=== PATIENT | male | born 1945 | race Caucasian/White ===

== ENCOUNTER 2018-02-05 19:40 | Emergency (ER) | payer OTHER, SELFPAY ==
[2018-02-05 19:41] VITALS: BP 162/71; PULSE 73; RESP 20; TEMP 36.6; O2SAT 97; BMI 29.5
[2018-02-05] MEDS: Oxymetazoline 0.05% 1 SPRAY SPRAY.BTL 2 SPRAY NASAL (21:22)
[2018-02-05] MEDS: Tetracaine/Benzocaine/Butamben 1 APPLIC TOPICAL (21:23)
--- NOTE | 2018-02-05 22:16 | ED.DCSUM_ITS ---
- ER Visit Summary Date of Service: 02/05/18 Chief Complaint: Nosebleed History of Present Illness: The patient is a 72 M with nosebleed for the past 2 hours. Patient is currently on Xarelto and aspirin. He states that the nosebleed started after blowing his nose and is not been able to get it to stop. Physical Examination: Vital signs significant for blood pressure 162/71, otherwise unremarkable. Patient sitting upright in bed. He has a nasal clamp on but is continuing to bleed in spite of this. He states blood was coming from both right and left sides. Test Results: [] Emergency Department Course and Treatment: Nasal clamp is removed. Afrin and Cetacaine are applied to each nare. I attempted to have patient blow his nose but he was unable. Blood is noted to both sides. He believes the majority the bleeding was coming from the right side, so a 5.5 cm Rhino Rocket was placed into the right nare. Patient is observed for a period of 2 hours of bleeding is controlled. He is given a prescription for Keflex to prevent sinusitis. He is to follow-up with Dr. Wolfe, on-call for ENT in the next 2-3 days. Treatment Plan: [] Disposition: Discharge Impression: Epistaxis status post nasal packing This note was generated with [employer] dictation software. It may contain incorrect words, spelling, and punctuation that were not noted in review of the chart prior to signing ED Disposition - Plan for ED Patient: Disposition: Home or Assisted Living Chief Complaint: Nosebleed Instructions: Nosebleed Prescriptions: Cephalexin [Keflex] 500 mg PO BID #10 capsule Referrals: Alec Wolfe MD [STAFF PHYSICIAN] - 2 Days [place], [place] [Primary Care Provider] -
--- NOTE | 2018-02-05 22:16 | ED.DEP ---
ED Disposition - Plan for ED Patient: Disposition: Home or Assisted Living Chief Complaint: Nosebleed Instructions: Nosebleed Prescriptions: Cephalexin [Keflex] 500 mg PO BID #10 capsule Referrals: [facility] [Primary Care Provider] - Alec Wolfe MD [STAFF PHYSICIAN] - 2 Days
[2018-02-05 22:26] VITALS: BP 141/115; PULSE 69; RESP 16; O2SAT 98
== END 2018-02-05 22:27 | disposition home or self-care (01) ==
PROVIDERS: Emergency Provider Emergency Medicine
DX: R04.0 Epistaxis (principal); I10 Essential (primary) hypertension; K21.9 Gastro-esophageal reflux disease without esophagitis; Z79.01 Long term (current) use of anticoagulants; Z79.82 Long term (current) use of aspirin; Z79.899 Other long term (current) drug therapy; Z86.718 Personal history of other venous thrombosis and embolism; Z87.891 Personal history of nicotine dependence; Z95.5 Presence of coronary angioplasty implant and graft; Z95.1 Presence of aortocoronary bypass graft
CPT/HCPCS: 30901; 99282

== ENCOUNTER 2018-03-13 10:19 | Observation (INO) | payer OTHER, SELFPAY ==
[2018-03-13] VITALS (12 sets, daily range): BP systolic 136–157; BP diastolic 49–105; PULSE 55–71; RESP 11–18; TEMP 36.4–36.6; O2SAT 94–96; BMI 32.8; BMI 31.1
--- NOTE | 2018-03-13 10:31 | EKG12_ITS ---
Test Reason : CP Blood Pressure : / mmHG Vent. Rate : 069 BPM Atrial Rate : 069 BPM P-R Int : 180 ms QRS Dur : 098 ms QT Int : 400 ms P-R-T Axes : 027 -70 099 degrees QTc Int : 428 ms Normal sinus rhythm Left axis deviation Incomplete right bundle branch block Minimal voltage criteria for LVH, may be normal variant Anteroseptal infarct , age undetermined Abnormal ECG Confirmed by GT IRELAND, CONNOR ([id number]), material expeditor VIDHI BEAVERS ([id number]) on 03/14/2018 1:30:31 PM Referred By: Ramin Escoto Confirmed By:CONNOR DEL REAL MD
--- NOTE | 2018-03-13 10:36 | RAD_ITS ---
STUDY: X-RAY CHEST REASON FOR EXAM: Male, 73 years old. Chest pain. Prior [place]. TECHNIQUE: Single AP portable view of the chest. COMPARISON: None. FINDINGS: EKG electrodes are seen. The lungs are clear and expanded. There is no demonstrated pleural abnormality. Sternal cerclage wires and vascular clips are present from a prior sternotomy and coronary artery bypass graft procedure (CABG). Normal mediastinum and ian. Normal visualized pulmonary arteries. There is atherosclerotic tortuosity of the aortic arch and descending thoracic aorta. Normal visualized thoracic spine. Normal visualized ribs, clavicles, and shoulders. There is no demonstrated abnormality of the visualized soft tissue structures of the upper abdomen. RAD/Chest 1 View (Portable) IMPRESSION: Prior CABG. No acute abnormality is seen. Electronically Signed: Simon Wisdom MD at 10:55 EDT Tel [phone], Service support ,
[2018-03-13 10:44] LABS: Absolute Lymphocyte Count 2.88 X10^3/ul (0.83-4.51); Absolute Neutrophil Count 4.7 X10^3/uL (2.0-7.7); Basophil# 0.04 X10^3/uL; Basophil% 0.4 % (0-1); Eosinophil# 0.39 X10^3/uL; Eosinophils% 4.3 % (0-5); Hematocrit 42.7 % (40-54); Hemoglobin 13.8 g/dl (13.0-16.5); Lymphocyte # 2.88 X10^3/ul (4.0); Lymphocyte % 31.6 % (19-41); Mean Corp Hgb Conc 32.3 g/gl (32-36); Mean Corpuscular Hgb 29.6 pg (27.0-32.0); Mean Corpuscular Volume 91.6 fL (80-94); Mean Platelet Vol. 10.8 fl (6.2-12.0); Monocyte# 1.05 X10^3/uL; Monocyte% 11.5 % (0-10); Neutrophil # 4.73 X10^3/uL (2.7-7.7); Neutrophil % 51.9 % (47-70); POSITIVE COUNT NO; POSITIVE DIFFERENTIAL NO; POSITIVE MORPHOLOGY NO; Platelet Count 230 K/mm3 (150-450); RBC Distribution Width CV 14.8 % (11.6-14.6); RBC Distribution Width SD 49.4 fl (35.1-43.9); Red Blood Count 4.66 M/mm3 (4.6-6.2); White Blood Count 9.1 K/mm3 (4.4-11.0)
[2018-03-13 11:00] LABS: Anion Gap 9 (5-15); BUN 29 mg/dL (7-18); BUN/Creat Ratio 21.3 RATIO (10-20); Calcium,Total 9.1 mg/dL (8.5-10.1); Chloride 107 mmol/L (98-107); Creatinine, Serum 1.36 mg/dL (0.70-1.30); EST Glomerular Filtration Rate 55 mL/min (>60); Est Glom Filt Rate - Afr Amer 66 mL/min (>60); Glucose 199 mg/dL (74-106); Potassium 4.1 mmol/L (3.5-5.1); Sodium Level 141 mmol/L (136-145)
--- NOTE | 2018-03-13 11:33 | NURSING ---
GURDEEP HAWKINS ABOUT TRANSFERRING PATIENT. LEFT INFO ON MACHINE.
[2018-03-13] MEDS: Nitroglycerin Oint 1 INCH PACKET TRANSDERM. (11:54)
--- NOTE | 2018-03-13 12:26 | ED.RN ---
CALLED CASSIA HAWKINS AND SPOKE WITH RUPERT AT [facility]. RUPERT WAS INFORMED THAT WE LEFT A MESSAGE FOR THE TRANSFER CENTER. RUPERT STATED THAT SINCE WE LEFT THE PATIENT'S INFO WITH THE TRANSFER CENTER THAT WE SHOULD DO WHATEVER IS IN THE BEST INTEREST OF THE PATIENT.
--- NOTE | 2018-03-13 12:36 | ED.DCSUM_ITS ---
- ER Visit Summary Date of Service: 03/13/18 Chief Complaint: [Chest pain] History of Present Illness: The patient is a 73 M presents the emergency department chief complaint of chest pain that started yesterday. Patient describes a tightness in his chest that comes on intermittently especially with activity. Patient states she has had similar pains in the past with his heart attacks that required three-vessel CABG. Patient describes some mild shortness of breath with this. Patient states that he took 2 nitroglycerin yesterday that seemed to relieve his pain. Patient also took 2 nitroglycerin this morning which relieved his pain. He has minimal discomfort at this time. Patient states that he also has a history of prior blood clots in his legs and was on Xarelto up until about 3 weeks ago at which time he had a nosebleed and was taken off.] Physical Examination: [HEENT-PERRLA, EOMI. Cranial nerves II through XII grossly intact. TMs clear. Mucous membranes moist. No adenopathy. Cardiovascular-regular rate and rhythm without murmur or ectopy Lungs-clear to auscultation, chest wall stable without crepitus or subcu emphysema Abdomen-normoactive bowel sounds, soft, nontender, no rebound or rigidity, no peritoneal signs. Extremities-intact ?4, normal range of motion, normal pulses, atraumatic] Test Results: [EKG obtained on arrival shows sinus rhythm with a ventricular rate of [address] changes noted. CBC with differential obtained showed a white blood cell count of 9.1, hemoglobin 13.8, hematocrit 43 , platelets 230. Chemistries unremarkable. BUN was 29 and creatinine was 1.36. Troponin is 0.028. Chest x-ray showed nothing acute.] Emergency Department Course and Treatment: [Patient received aspirin in the emergency department and was given an inch of Nitropaste to the anterior chest wall. [facility] and after waiting for over an hour still have not heard back. We contacted the [facility] second time and were told to do what was in the best interest of the patient until we heard back from the transfer center. This point patient would prefer to remain at [place] and hospitalist will be contacted to evaluate patient for admission. ] Treatment Plan: [Admit] Disposition: [Admit] Impression: [Chest pain-rule out acute coronary syndrome] This note was generated with Elliott dictation software. It may contain incorrect words, spelling, and punctuation that were not noted in review of the chart prior to signing ED Disposition - Plan for ED Patient: Chief Complaint: Chest Pain [facility] [[facility] Provider] -
[2018-03-13] MEDS: Aspirin 81 MG TAB.CHEW 324 MG PO (12:55)
--- NOTE | 2018-03-13 13:46 | EKG12_ITS ---
Test Reason : ADMISSION CP EKG Blood Pressure : / mmHG Vent. Rate : 063 BPM Atrial Rate : 063 BPM P-R Int : 188 ms QRS Dur : 096 ms QT Int : 426 ms P-R-T Axes : 023 -60 107 degrees QTc Int : 435 ms Normal sinus rhythm Left axis deviation Incomplete right bundle branch block Anteroseptal infarct (cited on or before 20-JUN-2010) T wave abnormality, consider lateral ischemia Abnormal ECG When compared with ECG of 10-NOV-2010 10:42, Incomplete right bundle branch block is now Present Questionable change in initial forces of Anterior leads Confirmed by GT IRELAND, CONNOR ([id number]), story editor VIDHI BEAVERS ([id number]) on 03/14/2018 2:17:10 PM Referred By: Ramin Escoto Confirmed By:CONNOR DEL REAL MD
[2018-03-13] MEDS: Acetaminophen 325 MG Tablet 650 MG PO (14:56)
[2018-03-13] MEDS: Heparin Injection (Vial) 5,000 UNIT/ML VIAL 5000 UNIT SC (14:56)
--- NOTE | 2018-03-13 15:37 | NURSING ---
PAUL TORRES, CALLED TO FOLLOW UP ON PATIENT. TOLD HE WAS ADMITTED
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
[2018-03-13] MEDS: 0.9% Normal Saline 1,000 ML 75 ML IV (20:26)
[2018-03-13] MEDS: 0.9% NaCl Peripheral Flush Adult/Peds IV (20:27)
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
[2018-03-13] MEDS: Metoprolol Tartrate 100 MG Tablet PO (21:19)
[2018-03-13] MEDS: Atorvastatin Calcium 40 MG Tablet PO (21:19)
[2018-03-13] MEDS: Clopidogrel Bisulfate 300 MG Tablet PO (21:59)
[2018-03-14] VITALS (22 sets, daily range): BP systolic 135–177; BP diastolic 7–94; PULSE 56–89; RESP 16–18; TEMP 36.1–36.9; O2SAT 93–98
[2018-03-14 05:15] LABS: Absolute Lymphocyte Count 2.91 X10^3/ul (0.83-4.51); Absolute Neutrophil Count 5.7 X10^3/uL (2.0-7.7); Basophil# 0.06 X10^3/uL; Basophil% 0.6 % (0-1); Eosinophil# 0.44 X10^3/uL; Eosinophils% 4.3 % (0-5); Hematocrit 39.4 % (40-54); Hemoglobin 12.7 g/dl (13.0-16.5); Lymphocyte # 2.91 X10^3/ul (4.0); Lymphocyte % 28.6 % (19-41); Mean Corp Hgb Conc 32.2 g/gl (32-36); Mean Corpuscular Hgb 29.7 pg (27.0-32.0); Mean Corpuscular Volume 92.3 fL (80-94); Mean Platelet Vol. 10.7 fl (6.2-12.0); Monocyte# 1.03 X10^3/uL; Monocyte% 10.1 % (0-10); Neutrophil # 5.67 X10^3/uL (2.7-7.7); Neutrophil % 55.9 % (47-70); Platelet Count 212 K/mm3 (150-450); RBC Distribution Width CV 14.9 % (11.6-14.6); Red Blood Count 4.27 M/mm3 (4.6-6.2); White Blood Count 10.2 K/mm3 (4.4-11.0)
[2018-03-14 05:22] LABS: POSITIVE COUNT NO; POSITIVE DIFFERENTIAL NO; POSITIVE MORPHOLOGY NO
[2018-03-14 05:30] LABS: Prothrombin Time (Protime)PT. 12.8 SECONDS (11.7-14.9)
[2018-03-14 05:31] LABS: Anion Gap 9 (5-15); BUN 30 mg/dL (7-18); BUN/Creat Ratio 25.2 RATIO (10-20); Calcium,Total 8.7 mg/dL (8.5-10.1); Chloride 109 mmol/L (98-107); Creatinine, Serum 1.19 mg/dL (0.70-1.30); EST Glomerular Filtration Rate 64 mL/min (>60); Est Glom Filt Rate - Afr Amer 78 mL/min (>60); Estimated Creatinine Clearance 56.94 ml/min; Glucose 128 mg/dL (74-106); Partial Thromboplast Time 30.8 Seconds (24.1-36.2); Potassium 4.3 mmol/L (3.5-5.1); Sodium Level 144 mmol/L (136-145)
--- NOTE | 2018-03-14 05:55 | EKG12_ITS ---
Test Reason : Blood Pressure : / mmHG Vent. Rate : 071 BPM Atrial Rate : 071 BPM P-R Int : 186 ms QRS Dur : 096 ms QT Int : 408 ms P-R-T Axes : 029 -57 070 degrees QTc Int : 443 ms Normal sinus rhythm Left axis deviation Incomplete right bundle branch block Anteroseptal infarct , age undetermined T wave abnormality, consider lateral ischemia Abnormal ECG When compared with ECG of 14-MAR-2018 07:01, MANUAL COMPARISON REQUIRED, DATA IS UNCONFIRMED Confirmed by GT IRELAND, CONNOR ([id number]), greeting card editor VIDHI BEAVERS ([id number]) on 03/20/2018 9:33:41 AM Referred By: Ramin Escoto Confirmed By:CONNOR DEL REAL MD
[2018-03-14] MEDS: Clopidogrel Bisulfate 75 MG Tablet PO (06:08)
[2018-03-14] MEDS: Aspirin E.C. 81 MG Tablet PO (06:08)
[2018-03-14] MEDS: Metoprolol Tartrate 100 MG Tablet PO ×2 (06:08→23:08)
[2018-03-14] MEDS: 0.9% Normal Saline 1,000 ML 15 ML IV (06:26)
--- NOTE | 2018-03-14 07:01 | NURSING ---
pt c/o CP at this time. Ordering stat EKG
--- NOTE | 2018-03-14 07:03 | EKG12_ITS ---
Test Reason : Blood Pressure : / mmHG Vent. Rate : 066 BPM Atrial Rate : 066 BPM P-R Int : 186 ms QRS Dur : 096 ms QT Int : 406 ms P-R-T Axes : 037 -60 084 degrees QTc Int : 425 ms Normal sinus rhythm Left axis deviation Incomplete right bundle branch block Anteroseptal infarct , age undetermined Abnormal ECG Confirmed by GT IRELAND, CONNOR ([id number]), editor magazine VIDHI BEAVERS ([id number]) on 03/20/2018 9:33:25 AM Referred By: Ramin Escoto Confirmed By:CONNOR DEL REAL MD
[2018-03-14] MEDS: Morphine 4 MG/ML Syringe IV ×2 (07:14→08:43)
--- NOTE | 2018-03-14 08:27 | EKG12_ITS ---
Test Reason : AM EKG Blood Pressure : / mmHG Vent. Rate : 064 BPM Atrial Rate : 064 BPM P-R Int : 186 ms QRS Dur : 096 ms QT Int : 414 ms P-R-T Axes : 039 -62 087 degrees QTc Int : 427 ms Normal sinus rhythm Left axis deviation Incomplete right bundle branch block Anteroseptal infarct , age undetermined T wave abnormality, consider lateral ischemia Abnormal ECG Confirmed by GT IRELAND, CONNOR ([id number]), telegraph editor VIDHI BEAVERS ([id number]) on 03/20/2018 9:34:00 AM Referred By: Ramin Escoto Confirmed By:CONNOR DEL REAL MD
--- NOTE | 2018-03-14 08:29 | NURSING ---
Pt c/o 02/01 sharp/stabbing mid chest pain- Obtaining EKG and notifying
--- NOTE | 2018-03-14 08:51 | NURSING ---
Pt c/o 02/01- stabbing/sharp chest pain- EKG obtained and MD notified for orders for Nitro. New orders given for x1 dose of Morphine 4mg- Dr. Mckeon at bedside reviewing EKG. Pt instructed to put endodontics dentist light before getting up to BR d/t having 4 mg of Morphine. Bed Alarm on.
--- NOTE | 2018-03-14 10:52 | CASEMGMT ---
This MARITA ZAPIEN received call from [facility] at [place] transfer center at this time and confirmed that pt is in observation status. Updated clinicals faxed to [place] at this time. [facility] CM
[2018-03-14] MEDS: Tamsulosin HCl 0.4 MG Capsule PO (17:06)
[2018-03-14] MEDS: Enoxaparin 80 MG/0.8 ML Syringe SC (18:10)
--- NOTE | 2018-03-14 19:05 | PCM.PROGNOTE ---
Patient Problems: Active and Suspected Problems Chest pain (Acute) Subjective: Patient was seen and examined today, I had a conversation with his daughter who did not want him to undergo a stress test at this institution but we were able to obtain records from the [facility] concerning his cardiac history and cardiology decided to perform a heart catheterization today. There was not evidence of any occlusive disease which warranted intervention however, patient had a left ventricular thrombus present and his EF was 45%. Patient was placed on subcu Lovenox and he was started on Coumadin. - Physical Exam General: Alert, Oriented x3, Cooperative, No apparent distress, Well developed HEENT: Atraumatic, PERRLA, EOMI, Normocephalic Oral: Moist Mucosa Neck: Supple, Trachea Midline, Thyroid Normal Size and Texture Lungs: Clear to auscultation, Normal air movement, No rhonchi, No wheeze, No rales Cardiovascular: Regular rate, Regular Rhythm, Normal S1, Normal S2, No murmurs, No Ectopic Activity Abdomen: Bowel Sounds Present, Soft, Non Tender, Non-Distended, No hernias noted Extremities: No edema, Capillary Refill Less than 3 Seconds Skin: No rashes, No breakdown Musculoskeletal: No Tenderness to Palpation of Joints or Extremities Neurological: Cranial nerves II-XII grossly intact, Neuro grossly intact, Sensory exam intact to light touch and pain, Coordination normal Psych/Mental Status: Normal Affect, Appropriate, Alert and oriented to time, place, person, mood and affect Vital Signs Temp Pulse Resp BP Pulse Ox 98.3 F 68 16 158/78 H 96 03/14/18 16:30 03/14/18 16:30 03/14/18 16:30 03/14/18 16:30 03/14/18 16:30 Oxygen Flow Rate (L/min) 2 Oxygen Delivery Method Room Air Weight: 95.6 kg Body Mass Index (BMI) 31.1 Intake and Output for Last 24 Hours 03/12/18 03/13/18 03/14/18 23:59 23:59 23:59 Intake Total 428 / 428 1114 / 1114 Output Total 400 / 400 Balance 428 / 428 714 / 714 Laboratory Tests Past 24 Hrs 03/14/18 03/14/18 03/14/18 04:54 04:54 04:54 WBC 10.2 RBC 4.27 L Hgb 12.7 L Hct 39.4 L MCV 92.3 MCH 29.7 MCHC 32.2 RDW 14.9 H RDW Differential 49.0 H Plt Count 212 MPV 10.7 Immature Gran % (Auto) 0.500 Neut % (Auto) 55.9 Lymph % (Auto) 28.6 [place] % (Auto) 10.1 H Eos % (Auto) 4.3 Baso % (Auto) 0.6 Absolute Neuts (auto) 5.7 Absolute Lymphs (auto) 2.91 Total Counted Not Reportable PT 12.8 INR 1.0 APTT 30.8 Sodium 144 Potassium 4.3 Chloride 109 H Carbon Dioxide 26.0 Anion Gap 9 BUN 30 H Creatinine 1.19 Estim Creat Clear Calc 56.94 Est GFR (MDRD) Af Amer 78 Est GFR (MDRD) Non-Af 64 BUN/Creatinine Ratio 25.2 H Glucose 128 H Calcium 8.7 Medical Necessity - Tobacco Use Smoking Status: Former smoker Tobacco Use: Non-smoker Assessment/Plan All Active Problems Chest pain (Acute) #1 chest pain with known coronary artery disease-it appears at this time that he does not have occlusive coronary disease warranting intervention #2 left ventricular thrombus-patient was placed on subcu Lovenox and Coumadin today, INR will be monitored #3 Ischemic cardiomyopathy with reduced ejection fraction of 45% #4 hyperlipidemia #4 BPH #5 hypertension #6 Mild dehydration-patient's creatinine has corrected with fluid administration, his BUN is still slightly elevated today Code Visit OBSV E&M: 76317 Subsequent observation care L3
[2018-03-14] MEDS: Atorvastatin Calcium 40 MG Tablet PO (23:08)
[2018-03-15] VITALS (9 sets, daily range): BP systolic 128–146; BP diastolic 75–81; PULSE 63–69; RESP 16–18; TEMP 36.7–37.2; O2SAT 94–97
[2018-03-15 00:25] LABS: Mucous, Urine 0 SEEN /hpf (<or=2+); Squamous Epithelial Cells - UA 0 SEEN /hpf (0-5)
[2018-03-15 00:27] LABS: Color, Urine Yellow (Yellow); Glucose, Dipstick Normal (Normal); Ketone-Dipstick Negative (Negative); Leukocyte Esterase-Dipstick 500 /ul (Negative); Nitrite-Dipstick Negative (Negative); Occult Blood-Urine 25 /ul (Negative); Protein-Dipstick 30 mg/dl (Negative); Specific Gravity, Urine 1.015 (1.002-1.030); Urine Bilirubin Dipstick Negative (Negative); Urine Clarity Cloudy (Clear); Urine Urobilinogen Normal (Normal)
[2018-03-15 00:39] LABS: Bacteria 1+ /hpf (None Seen); White Blood Cells 50-100 SEEN /hpf (0-5)
[2018-03-15 00:40] LABS: Red Blood Cells-Urine 0-5 SEEN /hpf (0-5)
[2018-03-15] MEDS: Enoxaparin 80 MG/0.8 ML Syringe SC ×2 (05:38→16:51)
[2018-03-15] MEDS: Metoprolol Tartrate 100 MG Tablet PO (10:11)
[2018-03-15] MEDS: Aspirin E.C. 81 MG Tablet PO (10:11)
--- NOTE | 2018-03-15 11:29 | CT_ITS ---
STUDY: CT CHEST WITHOUT CONTRAST REASON FOR EXAM: Male, 73 years old. Chest pain. RADIATION DOSAGE (If Supplied By Facility): CTDIvol = ( 17.65 ) mGy, DLP = ( 604.08 ) mGycm TECHNIQUE: Transaxial imaging was performed without the administration of intravenous contrast material. Multiplanar coronal and sagittal images were reformatted. Individualized dose optimization techniques were used for this CT. COMPARISON: None. FINDINGS: Mild degree of increased markings at the left lung base suggestive of a left basilar scarring and/or atelectasis. There is no demonstrated pleural abnormality. Sternal cerclage wires and vascular clips are present from a prior sternotomy and coronary artery bypass graft procedure (CABG). There are calcifications of the coronary arteries. There are multiple small lymph nodes within the mediastinum, which are normal in size and morphology most compatible with reactive lymph hyperplasia. Normal hilar regions. Normal unenhanced pulmonary arteries. There is atherosclerotic calcification of the aortic arch . There are mild degenerative changes of the thoracic spine. Small hiatal hernia. 5.6 cm x 5.1 cm cyst in the upper medial portion of the left kidney. CT/Chest without Contrast IMPRESSION: Findings suggest mild linear scarring at the left lung base. Electronically Signed: Simon Wisdom MD at 14:03 EDT Tel [phone], Service support ,
--- NOTE | 2018-03-15 16:43 | PCM.DC ---
- Discharge Diagnoses Current Active Problems: Current Active and Chronic Problems Chest pain (Acute) You will use the following diet at home:: No restrictions Your food should be the consistency of: Regular Your liquids should be the consistency of: Regular/Thin Discharge Activity: Return to Normal Activity Weight Bearing Status: Full weight bearing Additional Instructions: You will need to stay on Lovenox until your INR is between 2 and 3 Allergies/Adverse Reactions: Allergies No Known Allergies Allergy (Verified 03/13/18 10:20) Medications to take at Discharge Aspirin [Adult Low Dose Aspirin EC] 81 mg PO DAILY 09/08/15 Atorvastatin Calcium [Lipitor] 40 mg PO QHS 09/08/15 Cholecalciferol (Vitamin D3) [D3-2000] 2,000 unit PO DAILY 09/08/15 Metoprolol Tartrate [Lopressor] 100 mg PO BID 09/08/15 Oxycodone HCl/Acetaminophen [Percocet 5-325] 1 - 2 tablet PO Q4H PRN PRN #20 tablet 01/15/17 Tamsulosin HCl [Flomax] 0.4 mg PO DAILY 01/15/17 Omeprazole 20 mg PO DAILY 03/13/18 Acetaminophen [Tylenol Tablet] 650 mg PO Q6H PRN PRN tablet 03/15/18 Enoxaparin Sodium [Lovenox] 150 mg SQ DAILY #8 syringe 03/15/18 Warfarin [Coumadin] 5 mg PO DAILY #1 tablet 03/15/18 The following prescriptions were given: Enoxaparin Sodium [Lovenox] 150 mg SQ DAILY #8 syringe Warfarin [Coumadin] 5 mg PO DAILY #1 tablet Primary Care Physician: [facility],[place] [Primary Care Provider] - Please follow up with your Primary Care Physician in: you will need your INR checked 03/18/18 and 03/19/18 Test Results: Test results from this visit will be discussed in further detail at your follow-up appointment, if applicable.
--- NOTE | 2018-03-15 16:50 | DCINST_ITS ---
- Discharge Diagnoses Current Active Problems: Current Active and Chronic Problems Chest pain (Acute) You will use the following diet at home:: No restrictions Your food should be the consistency of: Regular Your liquids should be the consistency of: Regular/Thin Discharge Activity: Return to Normal Activity Weight Bearing Status: Full weight bearing Additional Instructions: You will need to stay on Lovenox until your INR is between 2 and 3 Allergies/Adverse Reactions: Allergies No Known Allergies Allergy (Verified 03/13/18 10:20) Medications to take at Discharge Aspirin [Adult Low Dose Aspirin EC] 81 mg PO DAILY 09/08/15 Atorvastatin Calcium [Lipitor] 40 mg PO QHS 09/08/15 Cholecalciferol (Vitamin D3) [D3-2000] 2,000 unit PO DAILY 09/08/15 Metoprolol Tartrate [Lopressor] 100 mg PO BID 09/08/15 Oxycodone HCl/Acetaminophen [Percocet 5-325] 1 - 2 tablet PO Q4H PRN PRN #20 tablet 01/15/17 Tamsulosin HCl [Flomax] 0.4 mg PO DAILY 01/15/17 Omeprazole 20 mg PO DAILY 03/13/18 Acetaminophen [Tylenol Tablet] 650 mg PO Q6H PRN PRN tablet 03/15/18 Enoxaparin Sodium [Lovenox] 150 mg SQ DAILY #8 syringe 03/15/18 Warfarin [Coumadin] 5 mg PO DAILY #1 tablet 03/15/18 The following prescriptions were given: Enoxaparin Sodium [Lovenox] 150 mg SQ DAILY #8 syringe Warfarin [Coumadin] 5 mg PO DAILY #1 tablet Primary Care Physician: [facility],[place] [Primary Care Provider] - Please follow up with your Primary Care Physician in: you will need your INR checked 03/18/18 and 03/19/18 Test Results: Test results from this visit will be discussed in further detail at your follow- up appointment, if applicable.
[2018-03-15] MEDS: Tamsulosin HCl 0.4 MG Capsule PO (16:52)
--- NOTE | 2018-03-17 11:29 | PCM.DC.SUM ---
Discharge Date and Diagnosis Date of Admission: 03/13/18 Date of Discharge: 03/15/18 - Primary Discharge Diagnosis #1 noncardiac chest pain-etiology unknown #2 left ventricular thrombus #3 ischemic cardiomyopathy-ejection fraction 40-45% #4 hypertension #5 hyperlipidemia #6 BPH Hospital Course and Treatment Procedures: 2-D Echocardiogram, Cardiac catheterization Summary of Care Provided: The patient is a 73 year old M who was seen in the emergency room at [facility] with chief complaint of precordial chest pain. Patient had an extensive history of coronary artery disease including coronary artery bypass grafting proximally 3 years ago and placement of cardiac stents before that. Workup in the emergency room revealed his troponin to be unremarkable, EKG showed a normal sinus rhythm with an anterior septal infarct age undetermined and an incomplete right bundle branch block with left axis deviation. Patient's chest x-ray showed no evidence of congestive heart failure. Patient was placed in observation status on PCU, cardiac enzymes were cycled and these remained normal. Records were obtained from the [facility] regarding his previous coronary artery bypass and catheterization, it was felt that a cardiac catheterization would be indicated and he was taken for cardiac cath. Cardiac catheterization showed no evidence of occlusive coronary disease, I reduced ejection fraction 40-45% was noted. Patient had a follow-up echocardiogram which showed evidence of a thrombus in the left ventricle and the patient was placed on Lovenox and Coumadin was started. Patient continued to have twinges of chest pain, the etiology of this chest pain was unknown, on 03/15/18, patient was seen and examined and felt to be in stable condition for discharge home, he was discharged home on Lovenox and Coumadin, he was instructed to follow-up early the following week to get an INR at the [facility]. Further note, patient's daughter initially wanted the patient to be on nerve medication and in talking with the patient I did not feel a need to give him any sedatives, I was not absolutely sure what caused the patient's chest pain. Patient did have a noncontrasted chest CT performed before he was discharged which did not show any significant abnormalities. Discharge Activity: Return to Normal Activity Weight Bearing Status: Full weight bearing Home Medications: Medications to take at Discharge Aspirin [Adult Low Dose Aspirin EC] 81 mg PO DAILY 09/08/15 Atorvastatin Calcium [Lipitor] 40 mg PO QHS 09/08/15 Cholecalciferol (Vitamin D3) [D3-2000] 2,000 unit PO DAILY 09/08/15 Metoprolol Tartrate [Lopressor] 100 mg PO BID 09/08/15 Oxycodone HCl/Acetaminophen [Percocet 5-325] 1 - 2 tablet PO Q4H PRN PRN #20 tablet 01/15/17 Tamsulosin HCl [Flomax] 0.4 mg PO DAILY 01/15/17 Omeprazole 20 mg PO DAILY 03/13/18 Acetaminophen [Tylenol Tablet] 650 mg PO Q6H PRN PRN tablet 03/15/18 Enoxaparin Sodium [Lovenox] 150 mg SQ DAILY #8 syringe 03/15/18 Warfarin [Coumadin] 5 mg PO DAILY #1 tablet 03/15/18 Following Prescrptions Were Given to Patient: Enoxaparin Sodium [Lovenox] 150 mg SQ DAILY #8 syringe Warfarin [Coumadin] 5 mg PO DAILY #1 tablet [facility] [Primary Care Provider] - Please follow up with your Primary Care Physician in: you will need your INR checked 03/18/18 and 03/19/18 Disposition: Home Minutes spent on discharge:: 32 Patient Condition:: Stable Medical Necessity - Tobacco Use Smoking Status: Former smoker Tobacco Use: Non-smoker Meaningful Use Info Meaningful Use Diagnoses (Choose all that apply): None applicable Code Visit OBSV E&M: 26574 Observation care discharge
--- NOTE | 2018-03-17 11:35 | DS.PCM_ITS ---
Discharge Date and Diagnosis Date of Admission: 03/13/18 Date of Discharge: 03/15/18 - Primary Discharge Diagnosis #1 noncardiac chest pain-etiology unknown #2 left ventricular thrombus #3 ischemic cardiomyopathy-ejection fraction 40-45% #4 hypertension #5 hyperlipidemia #6 BPH Hospital Course and Treatment Procedures: 2-D Echocardiogram, Cardiac catheterization Summary of Care Provided: The patient is a 73 year old M who was seen in the emergency room at [facility] with chief complaint of precordial chest pain. Patient had an extensive history of coronary artery disease including coronary artery bypass grafting proximally 3 years ago and placement of cardiac stents before that. Workup in the emergency room revealed his troponin to be unremarkable, EKG showed a normal sinus rhythm with an anterior septal infarct age undetermined and an incomplete right bundle branch block with left axis deviation. Patient's chest x-ray showed no evidence of congestive heart failure. Patient was placed in observation status on PCU, cardiac enzymes were cycled and these remained normal. Records were obtained from the [facility] regarding his previous coronary artery bypass and catheterization, it was felt that a cardiac catheterization would be indicated and he was taken for cardiac cath. Cardiac catheterization showed no evidence of occlusive coronary disease , I reduced ejection fraction 40-45% was noted. Patient had a follow-up echocardiogram which showed evidence of a thrombus in the left ventricle and the patient was placed on Lovenox and Coumadin was started. Patient continued to have twinges of chest pain, the etiology of this chest pain was unknown, on , patient was seen and examined and felt to be in stable condition for discharge home, he was discharged home on Lovenox and Coumadin, he was instructed to follow-up early the following week to get an INR at the [facility]. Further note, patient's daughter initially wanted the patient to be on nerve medication and in talking with the patient I did not feel a need to give him any sedatives, I was not absolutely sure what caused the patient's chest pain. Patient did have a noncontrasted chest CT performed before he was discharged which did not show any significant abnormalities. Discharge Activity: Return to Normal Activity Weight Bearing Status: Full weight bearing Home Medications: Medications to take at Discharge Aspirin [Adult Low Dose Aspirin EC] 81 mg PO DAILY 09/08/15 Atorvastatin Calcium [Lipitor] 40 mg PO QHS 09/08/15 Cholecalciferol (Vitamin D3) [D3-2000] 2,000 unit PO DAILY 09/08/15 Metoprolol Tartrate [Lopressor] 100 mg PO BID 09/08/15 Oxycodone HCl/Acetaminophen [Percocet 5-325] 1 - 2 tablet PO Q4H PRN PRN #20 tablet 01/15/17 Tamsulosin HCl [Flomax] 0.4 mg PO DAILY 01/15/17 Omeprazole 20 mg PO DAILY 03/13/18 Acetaminophen [Tylenol Tablet] 650 mg PO Q6H PRN PRN tablet 03/15/18 Enoxaparin Sodium [Lovenox] 150 mg SQ DAILY #8 syringe 03/15/18 Warfarin [Coumadin] 5 mg PO DAILY #1 tablet 03/15/18 Following Prescrptions Were Given to Patient: Enoxaparin Sodium [Lovenox] 150 mg SQ DAILY #8 syringe Warfarin [Coumadin] 5 mg PO DAILY #1 tablet [facility] Phys[facility] [Primary Care Provider] - Please follow up with your Primary Care Physician in: you will need your INR checked 03/18/18 and 03/19/18 Disposition: Home Minutes spent on discharge:: 32 Patient Condition:: Stable Medical Necessity - Tobacco Use Smoking Status: Former smoker Tobacco Use: Non-smoker Meaningful Use Info Meaningful Use Diagnoses (Choose all that apply): None applicable Code Visit OBSV E&M: 08741 Observation care discharge
--- NOTE | 2018-03-18 09:58 | CL.D_ITS ---
Patient Name: NATHAN AN Study Date: 03/14/2018 Performing: Chema Mcmullen MD Ht: 69 inches 175 cm : 1945 Wt: 211.9 lbs 96 kg Age: 73 Gender: male BSA: 2.11 PROCEDURE(S) PERFORMED SZ90-KNF/COR/LV/CABG CLINICAL PROFILE AND INDICATIONS Indications: New Onset Angina <= 2 months Heart Failure: None Stress/Imaging Stress/Image Study Performed: No CAD Presentations: Symptom unlikely to be ischemic. CONCLUSIONS Patent bypass grafts to the left internal mammary artery, diagonal vessel, and circumflex artery. Th e [place] right coronary artery has mild disease. The left ventricular ejection fraction is depressed with anterior hypokinesis, apical akinesis and a thrombus noted therein RECOMMENDATIONS Medical therapy Recommend anticoagulation.. DESCRIPTION OF PROCEDURE The patient arrived to the procedure lab. The risks and benefits of the procedure as well as a full d escription of our services here and current unavailability of surgical backup were fully explained to the patient and/or their significant other prior to the catheterization. The Timeout was completed, verifying the correct patient and procedure. The patient's procedural site was prepped and draped in the usual fashion. Local anesthetic was given subcutaneously to right groin region with Lidocaine 2%. Using a modified Seldinger technique, arterial access was obtained via the right femoral artery, a 5 Fr sheath was inserted. Left Coronary Artery selective angiography was performed in multiple views u sing a 5 Fr. JL4 catheter. Right Coronary Artery selective angiography was then performed in multiple views using a 5 Fr. 3DRC (Josue) catheter. Saphenous Vein graft to the DIAG 1 selective angiograp hy was performed in multiple views using a 5 Fr. 3DRC (Josue) catheter. Left internal mammary andre ry graft to the LAD selective angiography was performed in multiple views using a 5 Fr. 3DRC (Tho mejia) catheter. Saphenous Vein graft to the OM 1 selective angiography was performed in multiple views u sing a 5 Fr. 3DRC (Josue) catheter. Left Ventriculography was performed in NOVOA projection using a 5 Fr. Pigtail catheter. LV to AO pullback pressures were then recorded.Contrast was injected through the sheath and the Right Iliac and Femoral artery were assessed for possible closure device.The arter ial sheath was pulled and a Mynx closure device was deployed for hemostasis CORONARY ANGIOGRAPHY DOMINANCE: Right Dominant LEFT HEART ASSESSMENT Left Ventricular Ejection Fraction: by LV Gram 45 % Anterior Hypokinesis - Moderate. Apical Akinesis Depressed Left Ventricular systolic function Lv thrombus in apex LEFT MAIN: Diffusely diseased up to 90 % LEFT ANTERIOR DECENDING ARTERY: PROX LAD: is occluded CIRCUMFLEX ARTERY: PROX CIRC: 100 % Stenosis RIGHT CORONARY ARTERY: Mild luminal irregularities MID RCA: Mild luminal irregularities less than 30% GRAFTS: GUARDADO graft to the Mid LAD is patent GUARDADO graft to the LAD is small Saphenous Vein graft to the 1st Diagonal is patent Saphenous Vein graft to the 1st Diagonal Also fills the second diagonal vessel with no significant st enosis. Saphenous Vein graft to the 2nd OM is patent COMPLICATIONS No Complications PROCEDURE MEDICATIONS Versed 1 mg IV Fentanyl 25 mcg IV Oxygen: 2 L/min via nasal cannula SUMMARY OF HEMODYNAMIC DATA Time AIR REST ECG 12:14:23 AO 151/67 (96) SA 12:30:14 LV 158/2, 18 12:39:53 LV 159/10, 27 12:39:59 LV 150/4, 24 12:42:06 LVp 149/5, 22 12:42:10 AOp 144/61 (92) 12:42:15 Signed By Chema Mcmullen MD On 03/18/2018 09:57:28 Chema Mcmullen MD
== END 2018-03-15 16:51 | disposition home or self-care (01) ==
LOC: ED 11:26 → PCU 13:06
PROVIDERS: Internal Medicine Cardiovascular Disease; Admitting Provider Internal Medicine; Emergency Provider Emergency Medicine; Visit Provider Internal Medicine
DX: R07.89 Other chest pain (principal); I25.10 Atherosclerotic heart disease of native coronary artery without angina pectoris; E78.5 Hyperlipidemia, unspecified; I10 Essential (primary) hypertension; I25.5 Ischemic cardiomyopathy; N40.0 Benign prostatic hyperplasia without lower urinary tract symptoms; E86.0 Dehydration; Z95.1 Presence of aortocoronary bypass graft; Z79.899 Other long term (current) drug therapy; Z79.82 Long term (current) use of aspirin; Z87.891 Personal history of nicotine dependence; I45.10 Unspecified right bundle-branch block; R94.31 Abnormal electrocardiogram [ECG] [EKG]
CPT/HCPCS: 36415; 71045; 71250; 80048; 81001; 84484; 85025; 85610; 85730; 93005; 93308; 93459; 96361; 96372; 96374; 96376; 99152; 99153; 99218; 99284; C1760; J7030; Q9957; Q9967; A4216; C8924; G0378; J2785

== ENCOUNTER → 2018-08-17 08:55 | Outpatient (CLI) | payer OTHER, SELFPAY ==
[2018-06-14 09:57] VITALS: BMI 32.1
--- NOTE | 2018-08-17 09:09 | CT_ITS ---
STUDY: CT CHEST WITHOUT CONTRAST REASON FOR EXAM: Male, 73 years old. Cough x2 months, worsening shortness of breath RADIATION DOSAGE (If Supplied By Facility): CTDIvol = ( 19.33 ) mGy, DLP = ( 771.22 ) mGycm TECHNIQUE: Transaxial imaging was performed without the administration of intravenous contrast material. Individualized dose optimization techniques were used for this CT. COMPARISON: 03/15/2018 FINDINGS: Lung windows show chronic interstitial changes in both lung jack without a superimposed acute pulmonary process. No organized infiltrate, or suspicious noncalcified mass or nodule. The soft tissue windows show normal-appearing thyroid gland. There are scattered subcentimeter axillary and mediastinal lymph nodes. Sternal cerclage wires and vascular clips are present from a prior sternotomy and coronary artery bypass graft procedure (CABG). Normal mediastinum. Normal hilar regions. Normal unenhanced pulmonary arteries. Normal aorta arch and descending thoracic aorta. There are multi-level degenerative changes of the thoracic spine. Limited cuts through the upper abdomen show colonic diverticulosis and a simple 4 cm left renal cyst CT/Chest without Contrast IMPRESSION: Chronic interstitial changes in both lung jack without a superimposed acute pulmonary process Remote CABG Degenerative bony changes Colonic diverticulosis Left renal cyst Electronically Signed: Hector Quan MD at 10:26 EST , Service support ,
== END ==
DX: R05 Cough (principal)
CPT/HCPCS: 71250

== ENCOUNTER 2019-06-09 14:19 | Emergency (ER) | payer OTHER, MEDICARE, SELFPAY ==
[2018-06-14 09:57] VITALS: BMI 32.1
[2019-06-09 14:20] VITALS: BP 186/86; PULSE 68; RESP 16; TEMP 36.9; O2SAT 96; BMI 32.5
--- NOTE | 2019-06-09 14:41 | RAD_ITS ---
STUDY: X-RAY CHEST REASON FOR EXAM: Male, 74 years old. Chest pain. TECHNIQUE: Single AP portable view of the chest. COMPARISON: Comparison is made with prior study dated March 13, 2018. FINDINGS: EKG electrodes are seen. Stable mild elevation of the right hemidiaphragm. There is no demonstrated pleural abnormality. Sternal cerclage wires and vascular clips are present from a prior sternotomy and coronary artery bypass graft procedure (CABG). Moderate cardiomegaly. Normal mediastinum and ian. Normal visualized pulmonary arteries. There is atherosclerotic tortuosity of the aortic arch and descending thoracic aorta. Normal visualized thoracic spine. Normal visualized ribs, clavicles, and shoulders. There is no demonstrated abnormality of the visualized soft tissue structures of the upper abdomen. RAD/Chest 1 View (Portable) IMPRESSION: Cardiomegaly. The lungs are clear. Electronically Signed: Simon Wisdom, at 15:06 EST , Service support ,
--- NOTE | 2019-06-09 14:41 | EKG12_ITS ---
Test Reason : CP Blood Pressure : / mmHG Vent. Rate : 068 BPM Atrial Rate : 068 BPM P-R Int : 186 ms QRS Dur : 098 ms QT Int : 422 ms P-R-T Axes : 027 -68 071 degrees QTc Int : 448 ms Normal sinus rhythm Left axis deviation Incomplete right bundle branch block Minimal voltage criteria for LVH, may be normal variant Anteroseptal infarct , age undetermined Abnormal ECG Confirmed by JANNY IRELAND, ERIK ([id number]), visual effects editor DENISE DALEY ([id number]) on 06/11/2019 12:54:54 PM Referred By: ANNA Confirmed By:ERIK SOLIMAN MD
--- NOTE | 2019-06-09 15:12 | ED.DCSUM_ITS ---
- ER Visit Summary Date of Service: 06/09/19 Chief Complaint: Chest pain History of Present Illness: The patient is a 74 M who goes to the [facility]. He has a history of coronary artery disease and had a three-vessel CABG in 2014. He reports he had 3-4 stents placed prior to that. His last heart cathet erization was in February 2018. No stents were placed at that time. However, he was found to have left ventricular mural thrombus. He followed up with Dr. Mcmullen in May of 2018. Patient has not seen a customer solutions architect since then. Patient reports that he has chest pain that began 8:00 this morning while he was at rest. It is a continuous pain that waxes and wanes. He describes it as a dull. Is 4-10 severity currently and at worst. It is worsened by nothing including exertion, movement, or breathing. Is also relieved by nothing. He reports that it makes him short of breath. He denies any associated nausea, vomiting, or diaphoresis. There is no radiation of the pain. Patient does report that he is felt fatigued today. He denies any chest pain or change in distal exertion the past month. However, he reports that this is the same as the pain prior to his bypass. Patient reports that he went to the [facility] yesterday for hematuria and was found to have a urinary tract infection. He was placed on Macrobid. He denies any fever, chills, dysuria, frequency, or back pain. Physical Examination: Vitals: Stable. Afebrile. General: Well-nourished and well-developed. Head: Normocephalic atraumatic. Neck: Supple, no lymphadenopathy. No JVD. Nontender. Cardiovascular: Regular rate and rhythm. No murmurs. Respiratory: No respiratory distress. Clear to auscultation bilaterally. Abdominal: Soft, nontender, nondistended, normal bowel sounds. No guarding, rebound, or peritoneal signs. Back: Nontender. Extremities: Nontender, 1+ pitting edema his lower extremities bilaterally. Skin: Normal color, no rash. Neurologic: Alert and oriented ?3. Cranial nerves II through XII are intact. Normal strength and sensation. Psych: Normal affect. Test Results: EKG is sinus at 68 with anteroseptal Q's. This is unchanged from prior. Chest x-ray shows cardiomegaly, but no acute disease. CBC shows H/H 12.6 and 37.9. Chem 7 shows BUN 24, Cr 1.42, and glucose of 107. INR is 2.8. Troponin is <0.015 despite greater than 8 hours of constant pain. Emergency Department Course and Treatment: Patient was given aspirin. He had an IV placed. He is resting comfortably. Treatment Plan: The patient was discussed with Dr. Mcmullen who agrees that with greater than 8 hours of constant pain and on Yenny changed EKG and a normal troponin this is not cardiac in etiology. I did discuss the patient at this time I do not have an explanation of his pain. He is instructed to follow-up with the customer solutions architect at the [facility] or Dr. Mcmullen within 1 week for another exam. He will be given a prescription for 10 [place] and Colace. Return to the emergency department for any worsening symptoms. Disposition: To home in improved and stable condition. Impression: 1. Atypical chest pain. 2. Coumadin coagulopathy. This note was generated with Yi De dictation software. It may contain incorrect words, spelling, and punctuation that were not noted in review of the chart prior to signing ED Disposition - Plan for ED Patient: Instructions: CHEST PAIN, Uncertain Cause Prescriptions: Docusate Sodium [Colace] 100 mg PO DAILY #20 capsule Hydrocodone Bitart/Apap 5-325 [[place] 5MG-325MG] 1 tablet PO Q4H PRN PRN 2 Days #10 tablet PRN Reason: Pain Referrals: [facility] [Primary Care Provider] - 1 Week Chema Mcmullen MD [STAFF PHYSICIAN] - 1-2 Weeks
[2019-06-09 15:15] LABS: Absolute Lymphocyte Count 2.76 X10^3/uL (0.83-4.51); Basophil# 0.06 X10^3/uL; Basophil% 0.6 % (0-1); Eosinophil# 0.35 X10^3/uL; Eosinophils% 3.8 % (0-5); Hematocrit 37.9 % (40-54); Hemoglobin 12.6 g/dL (13.0-16.5); Lymphocyte # 2.76 X10^3/ul (4.0); Lymphocyte % 29.8 % (19-41); Mean Corp Hgb Conc 33.2 g/dL (32-36); Mean Corpuscular Hgb 30.4 pg (27.0-32.0); Mean Corpuscular Volume 91.5 fL (80-94); Mean Platelet Vol. 10.3 fl (6.2-12.0); Monocyte# 0.96 X10^3/uL; Monocyte% 10.4 % (0-10); NRBC Flagged by Analyzer 0 % (0-5); Neutrophil # 4.99 X10^3/uL (2.7-7.7); Platelet Count 220 K/mm3 (150-450); RBC Distribution Width CV 14.6 % (11.6-14.6); RBC Distribution Width SD 48.9 fl (35.1-43.9); Red Blood Count 4.14 M/mm3 (4.6-6.2); White Blood Count 9.3 K/mm3 (4.4-11.0)
[2019-06-09 15:19] VITALS: BP 138/73; PULSE 70; RESP 19; O2SAT 95
--- NOTE | 2019-06-09 15:22 | NURSING ---
NEED A BLUE TOP FOR HEMOLIZED
[2019-06-09] MEDS: Aspirin 81 MG TAB.CHEW 324 MG PO (15:25)
[2019-06-09 15:33] LABS: Anion Gap 6 (5-15); BUN 24 mg/dL (7-18); BUN/Creat Ratio 16.9 RATIO (10-20); Chloride 107 mmol/L (98-107); Creatinine, Serum 1.42 mg/dL (0.70-1.30); EST Glomerular Filtration Rate 52 mL/min (>60); Est Glom Filt Rate - Afr Amer 63 mL/min (>60); Estimated Creatinine Clearance 45.49 ml/min; Glucose 107 mg/dL (74-106); Potassium 4.4 mmol/L (3.5-5.1); Sodium Level 141 mmol/L (136-145)
[2019-06-09 16:00] VITALS: BP 135/73; PULSE 65; RESP 17; O2SAT 95
[2019-06-09 16:42] LABS: International Normalized Ratio 2.8; Prothrombin Time (Protime)PT. 29.2 SECONDS (11.7-14.9)
[2019-06-09 17:00] VITALS: BP 172/86; PULSE 63; RESP 18; O2SAT 96
[2019-06-09 17:52] VITALS: BP 164/81; PULSE 63; RESP 13; O2SAT 98
== END 2019-06-09 17:52 | disposition home or self-care (01) ==
LOC: ED 15:08
PROVIDERS: Emergency Provider Emergency Medicine
DX: R07.89 Other chest pain (principal); R79.1 Abnormal coagulation profile; T45.515A Adverse effect of anticoagulants, initial encounter; N39.0 Urinary tract infection, site not specified; R31.9 Hematuria, unspecified; R06.02 Shortness of breath; I25.10 Atherosclerotic heart disease of native coronary artery without angina pectoris; N40.0 Benign prostatic hyperplasia without lower urinary tract symptoms; Z79.01 Long term (current) use of anticoagulants; Z79.82 Long term (current) use of aspirin; Z79.899 Other long term (current) drug therapy; Z95.5 Presence of coronary angioplasty implant and graft; Z95.1 Presence of aortocoronary bypass graft
CPT/HCPCS: 71045; 80048; 84484; 85025; 85610; 93005; 99285; A4216

== ENCOUNTER 2019-09-24 09:11 | Observation (INO) | payer OTHER, SELFPAY ==
[2019-09-24] VITALS (7 sets, daily range): BP systolic 136–167; BP diastolic 74–90; PULSE 56–71; RESP 16–18; TEMP 36.4–36.5; O2SAT 95–97; BMI 29.4; BMI 31.9
--- NOTE | 2019-09-24 09:16 | EKG12_ITS ---
Test Reason : CP Blood Pressure : / mmHG Vent. Rate : 066 BPM Atrial Rate : 066 BPM P-R Int : 212 ms QRS Dur : 100 ms QT Int : 444 ms P-R-T Axes : 035 -65 062 degrees QTc Int : 465 ms Sinus rhythm with 1st degree A-V block Left axis deviation Septal infarct , age undetermined Abnormal ECG Confirmed by ANNE IRELAND, MAN ([id number]), health editor VIDHI BEAVERS ([id number]) on 09/30/2019 2:02:38 PM Referred By: ANIBAL Confirmed By:ABRAM RODRÍGUEZ MD
--- NOTE | 2019-09-24 09:17 | CT_ITS ---
STUDY: CT BRAIN WITHOUT CONTRAST REASON FOR EXAM: Male, 74 years old. Altered LOC, trouble getting out of bed today and speaking, recent UTI. RADIATION DOSAGE (If Supplied By Facility): CTDIvol = ( 44.99 ) mGy, DLP = ( 812.98 ) mGycm TECHNIQUE: Transaxial CT imaging of the brain was performed without administration of intravenous contrast material. Individualized dose optimization techniques were used for this CT. COMPARISON: No relevant priors. FINDINGS: Normal soft tissue structures. Normal calvarium. Normal size ventricles and extra-axial spaces for the patient''s age. Normal white matter tracts of the cerebral hemispheres. Normal basal ganglia and thalami. Normal brainstem. Normal cerebellum. There is no intracranial hemorrhage. There are no findings of an acute ischemic infarction. There is mucoperiosteal inflammatory disease of the paranasal sinuses consistent with mild chronic sinusitis. CT/Brain/Head without Contrast IMPRESSION: Normal unenhanced CT scan of the brain. Electronically Signed: Christiano Montenegro MD at 10:34 EDT Tel , Service support ,
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
[2019-09-24 09:26] LABS: Bedside Glucose 190 mg/dL (70-110)
[2019-09-24] MEDS: 0.9% Normal Saline 1,000 ML 150 ML IV (09:27)
[2019-09-24 09:36] LABS: Absolute Lymphocyte Count 1.76 X10^3/uL (0.83-4.51); Absolute Neutrophil Count 8.2 X10^3/uL (2.0-7.7); Basophil# 0.08 X10^3/uL; Basophil% 0.7 % (0-1); Eosinophil# 0.25 X10^3/uL; Eosinophils% 2.2 % (0-5); Hematocrit 38.7 % (40-54); Hemoglobin 12.6 g/dL (13.0-16.5); Lymphocyte # 1.76 X10^3/ul (4.0); Lymphocyte % 15.7 % (19-41); Mean Corp Hgb Conc 32.6 g/dL (32-36); Mean Corpuscular Hgb 30.8 pg (27.0-32.0); Mean Corpuscular Volume 94.6 fL (80-94); Mean Platelet Vol. 10.9 fl (6.2-12.0); Monocyte# 0.84 X10^3/uL; Monocyte% 7.5 % (0-10); NRBC Flagged by Analyzer 0 % (0-5); Neutrophil # 8.17 X10^3/uL (2.7-7.7); Platelet Count 227 K/mm3 (150-450); RBC Distribution Width CV 14.3 % (11.6-14.6); RBC Distribution Width SD 48.8 fl (35.1-43.9); Red Blood Count 4.09 M/mm3 (4.6-6.2); White Blood Count 11.2 K/mm3 (4.4-11.0)
[2019-09-24 09:45] LABS: Bacteria 0 SEEN /hpf (None Seen); Mucous, Urine 0 SEEN /hpf (<or=2+); Red Blood Cells-Urine 0 SEEN /hpf (0-5); White Blood Cells 0 SEEN /hpf (0-5)
[2019-09-24 09:49] LABS: Color, Urine Yellow (Yellow); Glucose, Dipstick Normal (Normal); Ketone-Dipstick Negative (Negative); Leukocyte Esterase-Dipstick Negative /ul (Negative); Nitrite-Dipstick Negative (Negative); Occult Blood-Urine Negative /ul (Negative); Protein-Dipstick 15 mg/dl (Negative); Urine Bilirubin Dipstick Negative (Negative); Urine Clarity Sl. Cloudy (Clear); Urine Urobilinogen Normal (Normal)
[2019-09-24 09:52] LABS: International Normalized Ratio 2.3; Prothrombin Time (Protime)PT. 25.3 SECONDS (11.7-14.9)
[2019-09-24 09:53] LABS: Partial Thromboplast Time 31.9 Seconds (24.1-36.2)
[2019-09-24 09:54] LABS: AST(SGOT) 22 U/L (15-37); Alanine Aminotransfer ALT/SGPT 25 U/L (16-61); Albumin, Serum 3.3 g/dL (3.2-5.0); Alkaline Phosphatase 131 U/L (45-117); Anion Gap 7 (5-15); BUN 26 mg/dL (7-18); Calcium,Total 8.7 mg/dL (8.5-10.1); Chloride 107 mmol/L (98-107); Creatinine, Serum 1.24 mg/dL (0.70-1.30); EST Glomerular Filtration Rate 61 mL/min (>60); Est Glom Filt Rate - Afr Amer 74 mL/min (>60); Globulin 3.4 g/dL (2.2-4.2); Glucose 190 mg/dL (74-106); Potassium 4.3 mmol/L (3.5-5.1); Protein, Total 6.7 g/dL (6.4-8.2); Sodium Level 139 mmol/L (136-145)
[2019-09-24 09:57] LABS: Squamous Epithelial Cells - UA 0-5 SEEN /hpf (0-5)
[2019-09-24 09:59] LABS: Lactic Acid 1.8 mmol/L (0.4-1.9)
--- NOTE | 2019-09-24 10:05 | RAD_ITS ---
STUDY: X-RAY CHEST REASON FOR EXAM: Male, 74 years old. weakness THIS AM, HX OH, HX CABG, HX CATH STENTS TECHNIQUE: Single AP portable view of the chest. COMPARISON: 06/09/2019 FINDINGS: Status post median sternotomy. The lungs are clear and expanded. There is no demonstrated pleural abnormality. Normal size heart. Normal mediastinum and ian. Normal visualized pulmonary arteries. Normal visualized aortic arch and descending thoracic aorta. Normal visualized thoracic spine. Normal visualized ribs, clavicles, and shoulders. There is no demonstrated abnormality of the visualized soft tissue structures of the upper abdomen. RAD/Chest 1 View (Portable) IMPRESSION: No active disease. Electronically Signed: Christiano Montenegro MD at 10:35 EDT Tel , Service support ,
--- NOTE | 2019-09-24 13:39 | ED.RN ---
GIUSEPPE HAWKINS SPOKE WITH ANISH GO AHEAD AND ADMIT HIM
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
[2019-09-24] MEDS: Acetaminophen 325 MG Tablet 650 MG PO (15:41)
[2019-09-24 16:11] LABS: Bedside Glucose 147 mg/dL (70-110)
[2019-09-24] MEDS: 0.9% Normal Saline 1,000 ML 75 ML IV (16:13)
--- NOTE | 2019-09-24 17:07 | NURSING ---
Spoke w/ [facility] pharmacy care coordinator and he reports that contact has been made w/ [facility] Muse requesting pt's home medication list and awaiting fax. ED to send home list to PCU when obtained.
[2019-09-24 17:54] LABS: Hemoglobin A1c 6.8 % (4.2-6.3)
[2019-09-24 23:11] LABS: Bedside Glucose 127 mg/dL (70-110)
[2019-09-25] MEDS: 0.9% Saline Lock 10 ML Syringe IV ×3 (05:40→16:59)
[2019-09-25 07:48] LABS: Bedside Glucose 112 mg/dL (70-110)
[2019-09-25 08:46] LABS: International Normalized Ratio 2.3; Prothrombin Time (Protime)PT. 25.6 SECONDS (11.7-14.9)
[2019-09-25 08:59] LABS: AST(SGOT) 17 U/L (15-37); Alanine Aminotransfer ALT/SGPT 23 U/L (16-61); Alkaline Phosphatase 110 U/L (45-117); BUN 23 mg/dL (7-18); Calcium,Total 8.3 mg/dL (8.5-10.1); Chloride 108 mmol/L (98-107); Creatinine, Serum 1.32 mg/dL (0.70-1.30); Estimated Creatinine Clearance 48.94 ml/min; Glucose 117 mg/dL (74-106); Potassium 4.4 mmol/L (3.5-5.1); Protein, Total 6.3 g/dL (6.4-8.2); Sodium Level 142 mmol/L (136-145)
[2019-09-25 09:44] LABS: ALB/GLOB Ratio 0.9 RATIO (0.9-2.4); Anion Gap 7 (5-15); BUN/Creat Ratio 17.4 RATIO (10-20); EST Glomerular Filtration Rate 57 mL/min (>60); Est Glom Filt Rate - Afr Amer 69 mL/min (>60); Globulin 3.3 g/dL (2.2-4.2)
[2019-09-25 10:13] VITALS: BP 156/67; PULSE 71; RESP 18; TEMP 36.6; O2SAT 94
--- NOTE | 2019-09-25 11:12 | PCM.PN.HOSP ---
<Alvarez Hong - Last Filed: 09/25/19 11:12> Patient Problems: Active and Suspected Problems (Last Updated 06/14/18 @ 12:58 by Ebony Gomez) Weakness (Acute) Altered level of consciousness (Acute) Reason for Visit: debility Subjective: pt has been having cramping abd pain with doubling over making it difficult to walk. He feels back to his normal self today. He has been moving his bowels at least once sometimes twice daily. He has no nausea or vomiting. He reports 3 recent urinary tract infectious. He has bacteremia with GP cocci. No fever/chills. No wounds on his body. No dysuria. Vitals/I&O's: Vital Signs Temp Pulse Resp BP Pulse Ox 97.8 F 71 18 156/67 H 94 09/25/19 10:13 09/25/19 10:13 09/25/19 10:13 09/25/19 10:13 09/25/19 10:13 Oxygen Delivery Method Room Air Weight: 210 lb 1.6 oz Body Mass Index (BMI) 31.9 Finger Stick Blood Glucose 190 Intake and Output for Last 24 Hours 09/23/19 09/24/19 09/25/19 23:59 23:59 23:59 Intake Total 1350 / 1350 1000 / 1000 Balance 1350 / 1350 1000 / 1000 General: Alert, Oriented x3, Cooperative HEENT: Atraumatic, PERRLA, EOMI, Normocephalic Neck: Supple, No JVD, Negative Carotid Bruits Lungs: Clear to auscultation, Normal air movement Cardiovascular: Regular rate, No murmurs Abdomen: Bowel Sounds Present, Soft, Non Tender Extremities: No edema, Capillary Refill Less than 3 Seconds Skin: No rashes, No breakdown Musculoskeletal: No Tenderness to Palpation of Joints or Extremities Neurological: Cranial nerves II-XII grossly intact Psych/Mental Status: Normal Affect, Appropriate, Alert and oriented to time, place, person, mood and affect Microbiology Past 72 Hours 09/24/19 09:30 Urine, Clean Catch Urine Culture - Preliminary Culture exhibits no growth. 09/24/19 09:22 Blood Culture (Wb) - Anticubital Right Blood Culture - Preliminary Laboratory Results 09/24/19 09:45: Hemoglobin A1c 6.8 H 09/24/19 16:05: POC Glucose 147 H 09/24/19 22:54: POC Glucose 127 H 09/25/19 04:30: WBC Pending, RBC Pending, Hgb Pending, Hct Pending, MCV Pending, MCH Pending, MCHC Pending, RDW Std Deviation Pending, RDW Coeff of Renu Pending, Plt Count Pending, Neut % (Auto) Pending, Absolute Neuts (auto) Pending 09/25/19 04:30: Sodium 142, Potassium 4.4, Chloride 108 H, Carbon Dioxide 27.0, Anion Gap 7, BUN 23 H, Creatinine 1.32 H, Estim Creat Clear Calc 48.94, Est GFR (MDRD) Af Amer 69, Est GFR (MDRD) Non-Af 57 L, BUN/Creatinine Ratio 17.4, Glucose 117 H, Calcium 8.3 L, Total Bilirubin 0.40, AST 17, ALT 23, Alkaline Phosphatase 110, Total Protein 6.3 L, Albumin 3.0 L, Globulin 3.3, Albumin/Globulin Ratio 0.9 09/25/19 04:30: PT 25.6 H, INR 2.3 09/25/19 06:33: POC Glucose 112 H Current Medications Acetaminophen (Tylenol) 650 mg PO Q6H PRN PRN PRN Reason: Pain Score 1-10/Temp > 100.7 F Last Admin: 09/24/19 15:41 Dose: 650 mg Documented by: Albuterol Sulfate (Ventolin Aerosols) 2.5 mg INHALATION Q2H PRN PRN PRN Reason: Shortness of Breath/Wheezing Dextrose (D50w Syringe) 0 gm IV X1 PRN; Protocol PRN Reason: Hypoglycemia Glucagon () 1 mg IM .X1 PRN PRN Reason: Hypoglycemia Vancomycin IV Pharmacy to Dose (1 ea/ Sodium Chloride) 500 mls @ 250 mls/hr IV X1 PRN; Protocol PRN Reason: Rx to Dose Vancomycin HCl 2,000 mg/ (Sodium Chloride) 540 mls @ 250 mls/hr IV X1 ONE Stop: 09/25/19 14:09 Sodium Chloride () 250 mls @ 15 mls/hr IV .[id number] PRN PRN Reason: Saline Flush Sodium Chloride () 250 mls @ 15 mls/hr IV .[id number] PRN PRN Reason: Additional IVPB Infusion Nitroglycerin (Nitrostat) 0.4 mg SUBLINGUAL Q5M PRN PRN Reason: CARDIAC/CHEST PAIN Ondansetron HCl (Zofran) 4 mg IV Q8H PRN PRN PRN Reason: NAUSEA/VOMITING Psyllium Hydrophilic Mucilloid (Metamucil) 1 packet PO DAILY PRN PRN PRN Reason: Constipation Sodium Chloride () 10 - 40 ml IV UD PRN PRN Reason: SALINE FLUSH Sodium Chloride () 10 - 40 ml IV UD PRN PRN Reason: SALINE FLUSH STROKE Vital Signs/Narrative: Vital Signs Temp Pulse Resp BP Pulse Ox 09/25/19 10:13 97.8 F 71 18 156/67 H 94 Medical Necessity - Tobacco Use Smoking Status: Former smoker Tobacco Use: Non-smoker Assessment/Plan All Active Problems (Last Reviewed 06/14/18 @ 10:[address] Chema Mcmullen MD) Weakness (Acute) Altered level of consciousness (Acute) H/O coronary artery bypass surgery (Resolved 06/09/15) History of coronary artery stent placement (Resolved) 1. Bacteremia - unclear etiology. no skin wounds, openings. await final cx. ID consult. vancomycin started. repeat bl cx tomorrow. CXR neg. UA neg. recent UTI x3. 2. Debility, inability to walk - pt now ambulatory. This coincides with crampy abdominal pain. Bentyl started. [facility] brain neg. 3. Hx LV thrombus - warfarin 4. CAD - prior cabg, ischemic CM. trop neg. asa/statin/coreg/ranexa 5. CKD III - slight bump in Cr, will trend. 6. Hyperglycemia, mild DMt2 - a1c 6.8, ok for age, may start metformin as o/p. ssi while here. 7. BPH - flomax DVT ppx: warfarin This patient was seen by Alvarez Hong PA-C under the supervision of Doctor Dale. <Alec Hunter - Last Filed: 09/25/19 12:12> Vitals/I&O's: Vital Signs Temp Pulse Resp BP Pulse Ox 36.6 C 71 18 156/67 H 94 09/25/19 10:13 09/25/19 10:13 09/25/19 10:13 09/25/19 10:13 09/25/19 10:13 Oxygen Delivery Method Room Air Weight: 95.3 kg Body Mass Index (BMI) 31.9 Finger Stick Blood Glucose 190 Intake and Output for Last 24 Hours 09/23/19 09/24/19 09/25/19 23:59 23:59 23:59 Intake Total 1350 / 1350 1000 / 1000 Balance 1350 / 1350 1000 / 1000 General: Alert, Cooperative HEENT: Atraumatic, Normocephalic Neck: No Nodes, Trachea Midline Lungs: Clear to auscultation, Normal air movement Cardiovascular: Regular rate, Regular Rhythm, Normal S1, Normal S2, No murmurs Abdomen: Bowel Sounds Present, Soft, Non Tender Extremities: No edema, No Calf Tenderness Skin: No rashes, No breakdown Psych/Mental Status: Normal Affect, Appropriate Microbiology Past 72 Hours 09/24/19 09:30 Urine, Clean Catch Urine Culture - Preliminary Culture exhibits no growth. 09/24/19 09:22 Blood Culture (Wb) - Anticubital Right Blood Culture - Preliminary Laboratory Results 09/24/19 09:45: Hemoglobin A1c 6.8 H 09/24/19 16:05: POC Glucose 147 H 09/24/19 22:54: POC Glucose 127 H 09/25/19 04:30: WBC Pending, RBC Pending, Hgb Pending, Hct Pending, MCV Pending, MCH Pending, MCHC Pending, RDW Std Deviation Pending, RDW Coeff of Renu Pending, Plt Count Pending, Neut % (Auto) Pending, Absolute Neuts (auto) Pending 09/25/19 04:30: Sodium 142, Potassium 4.4, Chloride 108 H, Carbon Dioxide 27.0, Anion Gap 7, BUN 23 H, Creatinine 1.32 H, Estim Creat Clear Calc 48.94, Est GFR (MDRD) Af Amer 69, Est GFR (MDRD) Non-Af 57 L, BUN/Creatinine Ratio 17.4, Glucose 117 H, Calcium 8.3 L, Total Bilirubin 0.40, AST 17, ALT 23, Alkaline Phosphatase 110, Total Protein 6.3 L, Albumin 3.0 L, Globulin 3.3, Albumin/Globulin Ratio 0.9 09/25/19 04:30: PT 25.6 H, INR 2.3 09/25/19 06:33: POC Glucose 112 H Current Medications Acetaminophen (Tylenol) 650 mg PO Q6H PRN PRN PRN Reason: Pain Score 1-10/Temp > 100.7 F Last Admin: 09/24/19 15:41 Dose: 650 mg Documented by: Albuterol Sulfate (Ventolin Aerosols) 2.5 mg INHALATION Q2H PRN PRN PRN Reason: Shortness of Breath/Wheezing Atorvastatin Calcium (Lipitor) 80 mg PO QHS KRISTEN Carvedilol (Coreg) mg PO BID [facility] Dextrose (D50w Syringe) 0 gm IV X1 PRN; Protocol PRN Reason: Hypoglycemia Dicyclomine HCl (Bentyl) 10 mg PO TIDAC KRISTEN Ferrous Sulfate (Ferrous Sulfate) 325 mg PO DAILY@1200 KRISTEN Finasteride (Proscar) 5 mg PO DAILY KRISTEN Glucagon () 1 mg IM .X1 PRN PRN Reason: Hypoglycemia Vancomycin IV Pharmacy to Dose (1 ea/ Sodium Chloride) 500 mls @ 250 mls/hr IV X1 PRN; Protocol PRN Reason: Rx to Dose Vancomycin HCl 2,000 mg/ (Sodium Chloride) 540 mls @ 250 mls/hr IV X1 ONE Stop: 09/25/19 14:09 Sodium Chloride () 250 mls @ 15 mls/hr IV .[id number] PRN PRN Reason: Saline Flush Sodium Chloride () 250 mls @ 15 mls/hr IV .[id number] PRN PRN Reason: Additional IVPB Infusion Nitroglycerin (Nitrostat) 0.4 mg SUBLINGUAL Q5M PRN PRN Reason: CARDIAC/CHEST PAIN Ondansetron HCl (Zofran) 4 mg IV Q8H PRN PRN PRN Reason: NAUSEA/VOMITING Pantoprazole Sodium (Protonix) 20 mg PO DAILY [facility] Psyllium Hydrophilic Mucilloid (Metamucil) 1 packet PO DAILY PRN PRN PRN Reason: Constipation Ranolazine (Ranexa) 1,000 mg PO BID [facility] Sodium Chloride () 10 - 40 ml IV UD PRN PRN Reason: SALINE FLUSH Sodium Chloride () 10 - 40 ml IV UD PRN PRN Reason: SALINE FLUSH Last Admin: 09/25/19 05:40 Dose: 10 ml Documented by: Tamsulosin HCl (Flomax) mg PO QHS [facility] Warfarin Sodium (Coumadin (Pbkc)) 5 mg PO DAILY@1700 KRISTEN STROKE Vital Signs/Narrative: Vital Signs Temp Pulse Resp BP Pulse Ox 09/25/19 10:13 36.6 C 71 18 156/67 H 94 Assessment/Plan Patient seen and examined independently. Data reviewed. I agree with the above note by the physician assistant produce manager. 1. Abdominal pain: Transient but has been more frequent as of late. Patient explains that he gets abdominal pain and then becomes very weak and debilitated with these events. Events are transient and then resolve spontaneously. Patient has never had an abdominal CT before. Feel to be low yield at this time but patient were developed this in the future it may be worthwhile getting an abdominal CAT scan or release an x-ray to see if he has a small bowel obstruction or an ileus. Ad[facility] for the possibility of a exploratory laparotomy. Patient stated he had surgery for diverticulitis roughly 30 years ago so it is reasonable to assume that he has adhesions and these adhesions could be causing small bowel obstruction. I told the patient that that is my best guess about what may be going on here but it certainly could be some other possibility. I feel his weakness is associated with what ever is causing abdominal pain but patient states that he is not having abdominal issues he otherwise feels fine and is able to manage his activities of daily living. 2. Bacteremia: Patient only had 1 of 2 sets positive for gram-positive cocci. Could be contaminant but will recheck a blood cultures. Start the patient on vancomycin. If repeat cultures are positive then would likely need infectious disease and echocardiogram. Discussed with the patient's son, Andreas. I spoke to him before I knew about any positive blood cultures. Greater than 40 minutes of which 50% of the time was spent discussing with the patient and his son about bowel issues and the possibilities being small bowel obstruction and further instructions thereafter. OBSV E&M: [id number] Subsequent observation care L3
[2019-09-25 12:21] LABS: Bedside Glucose 181 mg/dL (70-110)
[2019-09-25] MEDS: Pantoprazole Sodium 20 MG Tablet PO (12:26)
[2019-09-25] MEDS: Dicyclomine 10 MG Capsule PO ×2 (12:26→17:09)
--- NOTE | 2019-09-25 12:35 | PCM.RX.CS ---
Consult Pharmacy has been consulted to manage selected antiobiotic: Vancomycin Type of Consult: New start Labs: Sodium 142 mmol/L (136-145) 09/25/19 04:30 Potassium 4.4 mmol/L (3.5-5.1) 09/25/19 04:30 Chloride 108 mmol/L (98-107) H 09/25/19 04:30 Carbon Dioxide 27.0 mmol/L (21.0-32.0) 09/25/19 04:30 Anion Gap 7 (5-15) 09/25/19 04:30 BUN 23 mg/dL (7-18) H 09/25/19 04:30 Creatinine 1.32 mg/dL (0.70-1.30) H 09/25/19 04:30 Est GFR (MDRD) Af Amer 69 mL/min (>60) 09/25/19 04:30 Est GFR (MDRD) Non-Af 57 mL/min (>60) L 09/25/19 04:30 BUN/Creatinine Ratio 17.4 RATIO (10-20) 09/25/19 04:30 Glucose 117 mg/dL (74-106) H 09/25/19 04:30 Microbiology: Microbiology 09/24/19 09:30 Urine, Clean Catch Urine Culture - Preliminary Culture exhibits no growth. 09/24/19 09:22 Blood Culture (Wb) - Anticubital Right Blood Culture - Preliminary Weight used for dosin kg Estimated Creatinine Clearance: 49ml/min Goal Trough: 15-20 mcg/mL Pharmacy Plan for Drug Dosing: Loading dose of Vancomycin 2000mg IV given 09/25/19 at 1220. Based on pt's weight and renal function, recommend an initial dose of 1000mg IV q12h. Est trough of 15-20. Trough to be drawn before the 4th total dose on 09/27/19 at 0000. Pharmacy will adjust dose based on that result. Pharmacy Service will continue to monitor and adjust dosing as required. Follow-Up Labs: Trough Vancomycin - 09-27-19 at 0000
[2019-09-25 13:20] LABS: Absolute Neutrophil Count 6.9 X10^3/uL (2.0-7.7); Basophil# 0.06 X10^3/uL; Basophil% 0.5 % (0-1); Eosinophil# 0.24 X10^3/uL; Eosinophils% 2.2 % (0-5); Hematocrit 36.6 % (40-54); Hemoglobin 11.4 g/dL (13.0-16.5); Lymphocyte % 24.3 % (19-41); Mean Corp Hgb Conc 31.1 g/dL (32-36); Mean Corpuscular Hgb 28.4 pg (27.0-32.0); Mean Corpuscular Volume 91.3 fL (80-94); Mean Platelet Vol. 10.8 fl (6.2-12.0); Monocyte# 1.16 X10^3/uL; Monocyte% 10.5 % (0-10); NRBC Flagged by Analyzer 0 % (0-5); Neutrophil # 6.88 X10^3/uL (2.7-7.7); Platelet Count 246 K/mm3 (150-450); RBC Distribution Width CV 14.3 % (11.6-14.6); RBC Distribution Width SD 47.9 fl (35.1-43.9); Red Blood Count 4.01 M/mm3 (4.6-6.2); White Blood Count 11.1 K/mm3 (4.4-11.0)
[2019-09-25 13:47] VITALS: BP 154/65; PULSE 68; RESP 18; TEMP 36.6; O2SAT 96
[2019-09-25] MEDS: traMADol 50 MG Tablet PO ×2 (15:41→23:30)
[2019-09-25] MEDS: Ondansetron 4 MG/2 ML Vial IV (17:00)
[2019-09-25 17:35] LABS: Bedside Glucose 127 mg/dL (70-110)
[2019-09-25 21:00] VITALS: BP 144/76; PULSE 70; RESP 20; TEMP 36.7; O2SAT 95
[2019-09-25] MEDS: Ranolazine 500 MG Tablet 1000 MG PO (23:00)
[2019-09-25] MEDS: Tamsulosin HCl 0.4 MG Capsule PO (23:00)
[2019-09-25] MEDS: Atorvastatin Calcium 80 MG Tablet PO (23:00)
[2019-09-25] MEDS: Carvedilol 25 MG Tablet 12.5 MG PO (23:02)
[2019-09-25 23:21] VITALS: RESP 18
[2019-09-25] MEDS: Vancomycin IV 1,000 MG/200 ML BAG 200 MG IV (23:30)
[2019-09-26 00:41] LABS: Bedside Glucose 109 mg/dL (70-110)
[2019-09-26 03:00] VITALS: BP 130/74; PULSE 67; RESP 16; TEMP 36.4; O2SAT 93
[2019-09-26 06:14] LABS: Absolute Lymphocyte Count 2.46 X10^3/uL (0.83-4.51); Absolute Neutrophil Count 5.5 X10^3/uL (2.0-7.7); Basophil# 0.07 X10^3/uL; Basophil% 0.7 % (0-1); Eosinophil# 0.36 X10^3/uL; Eosinophils% 3.8 % (0-5); Hematocrit 37.2 % (40-54); Hemoglobin 11.7 g/dL (13.0-16.5); Lymphocyte # 2.46 X10^3/ul (4.0); Lymphocyte % 25.9 % (19-41); Mean Corp Hgb Conc 31.5 g/dL (32-36); Mean Corpuscular Hgb 28.8 pg (27.0-32.0); Mean Corpuscular Volume 91.6 fL (80-94); Mean Platelet Vol. 10.8 fl (6.2-12.0); Monocyte# 1.09 X10^3/uL; Monocyte% 11.5 % (0-10); NRBC Flagged by Analyzer 0 % (0-5); Neutrophil # 5.46 X10^3/uL (2.7-7.7); Neutrophil % 57.4 % (47-70); Platelet Count 247 K/mm3 (150-450); RBC Distribution Width CV 14.5 % (11.6-14.6); RBC Distribution Width SD 48.4 fl (35.1-43.9); Red Blood Count 4.06 M/mm3 (4.6-6.2); White Blood Count 9.5 K/mm3 (4.4-11.0)
[2019-09-26 06:23] LABS: International Normalized Ratio 1.7; Prothrombin Time (Protime)PT. 20.2 SECONDS (11.7-14.9)
[2019-09-26 06:31] LABS: Anion Gap 7 (5-15); BUN 21 mg/dL (7-18); BUN/Creat Ratio 19.3 RATIO (10-20); Calcium,Total 8.4 mg/dL (8.5-10.1); Chloride 107 mmol/L (98-107); Creatinine, Serum 1.09 mg/dL (0.70-1.30); EST Glomerular Filtration Rate 71 mL/min (>60); Est Glom Filt Rate - Afr Amer 85 mL/min (>60); Estimated Creatinine Clearance 59.27 ml/min; Glucose 126 mg/dL (74-106); Sodium Level 139 mmol/L (136-145)
[2019-09-26] MEDS: Dicyclomine 10 MG Capsule PO ×2 (06:31→11:55)
[2019-09-26 06:41] LABS: Bedside Glucose 130 mg/dL (70-110)
--- NOTE | 2019-09-26 08:01 | CT_ITS ---
STUDY: CT ABDOMEN AND PELVIS WITH CONTRAST REASON FOR EXAM: Male, 74 years old. Abdominal pain and amp; cramping, recent UTI, + blood cultures. Hx of 3vessel CABG and CAD. Stage 3 kidney disease RADIATION DOSAGE (If Supplied By Facility): CTDIvol = ( 21.16 ) mGy, DLP = ( 2054.29 ) mGycm TECHNIQUE: Transaxial images were obtained from the dome of the diaphragm to the symphysis pubis with oral contrast. Oral and amp; IV Gastrografin and amp; 75ml optiray 320 was administered. Sagittal and coronal images were reconstructed. Individualized dose optimization techniques were used for this CT. COMPARISON: None. FINDINGS: Minimal left pleural effusion with mild left basilar atelectasis . Prior CABG. Coronary artery calcification. There is decreased attenuation of the liver consistent with steatosis. 1 cm cyst in the caudate lobe of the liver. 9 mm cyst in the medial aspect of the inferior aspect of the right lobe of the The gallbladder is contracted. Normal spleen. Normal pancreas. There is a small, circumscribed, smooth, low attenuation left adrenal mass, consistent with an adrenal adenoma. This measures 1.1 cm. Normal right adrenal gland. Normal right kidney. There is a 5.8 cm x 5.7 cm cyst in the posterior upper pole of the left kidney. Normal visualized stomach. Normal small intestine. There are multiple colonic diverticula consistent with diverticulosis. The appendix is visualized and appears normal. There is diffuse atherosclerotic calcification of the abdominal aorta and major visceral branches including the superior mesenteric artery., without a demonstrated aneurysm. Normal inferior vena cava. Normal retroperitoneum. There is diffuse thickening of the bladder wall with multiple urinary bladder diverticula. The largest diverticulum is on the left side of the bladder base measuring 3.7 cm by 3.2 cm. There are prostatic calcifications. The prostate is not enlarged. There is a small umbilical hernia containing fat. Disc space narrowing and disc degeneration at the L5-S1 level with spondylolysis and anterolisthesis of the L5 on S1 vertebrae. CT/Abdomen/Pelvis WITH Contrast IMPRESSION: Fatty infiltration of the liver. Hepatic cysts. Left renal cyst. 1.1 cm left adrenal adenoma. Diffuse bladder wall thickening with the multiple bladder diverticula are more prominent on the left side. Electronically Signed: Simon Wisdom, at 13:10 EDT , Service support ,
--- NOTE | 2019-09-26 08:38 | PCM.DC ---
- Discharge Diagnoses Current Active Problems: Current Active and Chronic Problems (Last Updated 06/14/18 @ 12:58 by Ebony Gomez) Debility (Chronic) Weakness (Acute) Altered level of consciousness (Acute) You will use the following diet at home:: Cardiac Your food should be the consistency of: Regular Your liquids should be the consistency of: Regular/Thin Discharge Activity: Return to Normal Activity Allergies/Adverse Reactions: Allergies No Known Allergies Allergy (Verified 06/09/19 14:20) Medications to take at Discharge Tamsulosin HCl [Flomax] 1 cap PO BID 01/15/17 Omeprazole 20 mg PO DAILY 03/13/18 atorvastatin 80 mg tablet 80 mg PO QHS 06/14/18 carvedilol 25 mg tablet 0.5 tab PO BID 06/14/18 ranolazine 1,000 mg tablet,extended release,12 hr 1,000 mg PO BID 06/14/18 Docusate Sodium [Colace] 100 mg PO DAILY #20 cap 06/09/19 Ferrous Sulfate 325 mg PO DAILY 06/09/19 Fexofenadine HCl 180 mg PO DAILY 06/09/19 Warfarin [Coumadin] 5 mg PO DAILY 09/24/19 Finasteride 5 mg PO DAILY 09/25/19 Ranitidine HCl 150 mg PO QHS 09/25/19 Tramadol HCl 50 mg PO BID 09/25/19 Primary Care Physician: [facility] [Primary Care Provider] - 1 Week Please follow up with your Primary Care Physician in: 1-2 weeks Test Results: Test results from this visit will be discussed in further detail at your follow-up appointment, if applicable. Proposed Discharge Date: 09/26/19
[2019-09-26 09:27] VITALS: BP 154/73; PULSE 64; RESP 18; TEMP 36.9; O2SAT 95
[2019-09-26] MEDS: Carvedilol 25 MG Tablet 12.5 MG PO (09:29)
[2019-09-26] MEDS: Tamsulosin HCl 0.4 MG Capsule PO (09:29)
[2019-09-26] MEDS: Ranolazine 500 MG Tablet 1000 MG PO (09:30)
[2019-09-26] MEDS: Pantoprazole Sodium 20 MG Tablet PO (09:30)
[2019-09-26] MEDS: Finasteride 5 MG Tablet PO (09:31)
--- NOTE | 2019-09-26 10:03 | CASEMGMT ---
This RN CM to room with ADAME form at this time, explanation done-pt voices understanding, and pt signed ADAME form at this time. Original to chart and copy to pt at this time. [facility] but the plan is for discharge today. This RN CM left contact info for [facility] at this time. Pt is updated that the [facility] and that they have been kept up to date, voices understanding. Pt voices no further questions/concerns/needs at this time. SStaten RN CM
--- NOTE | 2019-09-26 10:30 | DS.PCM_ITS ---
<Alvarez Hong - Last Filed: 09/26/19 10:30> Discharge Date and Diagnosis - Problem List Patient Problems: Active and Suspected Problems (Last Updated 06/14/18 @ 12:58 by Ebony Gomez) Weakness (Acute) Altered level of consciousness (Acute) Date of Admission: 09/24/19 Date of Discharge: 09/26/19 - Primary Discharge Diagnosis Active and Suspected Problems (Last Updated 06/14/18 @ 12:58 by Ebony Gomez) Weakness, difficulty ambulating due to abd pain cramping abd pain unclear etiology bacteremia ruled out - contaminant staph epi Hx LV thrombus CAD CKDIII Dmt2 BPH - Secondary Discharge Diagnosis Chronic Problems (Last Updated 06/14/18 @ 12:58 by Ebony Gomez) Debility (Chronic) Essential (primary) hypertension (Chronic) Hyperlipidemia (Chronic) LV (left ventricular) mural thrombus (Chronic) History of anterior wall myocardial infarction (Chronic) Ischemic cardiomyopathy (Chronic) Atherosclerosis of coronary artery of [place] heart with angina pectoris (Chronic) Hospital Course and Treatment Imaging Results: 09/26/19 08:01 CT Abd [Abdomen/Pelvis WITH Contrast] [CT] Urgent PENDING CT/Brain/Head without Contrast IMPRESSION: Normal unenhanced CT scan of the brain. RAD/Chest 1 View (Portable) IMPRESSION: No active disease. Operations: None Procedures: None Summary of Care Provided: Hospital Course: The patient is a 74 year old M with pmhx as above who presented to the ER with inability to ambulate. This would occur when he would have cramping abdominal pain. He was admitted to the PCU. He had mild increase in BUN/Cr, mildly increased WBCs, therapeutic INR, negative UA, no fever, neg CXR. He had resolution of his symptoms overnight. He was seen by PT and OT and demonstrated no need for ongoing therapy. He had no issues walking. He had a positive blood culture with [facility] in clusters, and was started on vancomycin. The next day this was read out as staph epi, and the second culture was negative. This was felt to be contaminant and the abx were stopped. He continued to have some intermittent cramping abd pain. A CT abdomen was obtained, results pending at this time. He was started on bentyl. He had some hyperglycemia while here and a1c was 6.8. Given his age and a1c, at this time dietary measures should be initiated first. He was discharged home in stable condition. [facility] will [facility] weeks. This patient was seen by Alvarez Hong PA-C under the supervision of Dr. Hunter. [] Patient Problems: Active and Suspected Problems (Last Updated 06/14/18 @ 12:58 by Ebony Gomez) Weakness (Acute) Altered level of consciousness (Acute) - Physical Exam Vitals/I&O's: Vital Signs Temp Pulse Resp BP Pulse Ox 98.4 F 64 18 154/73 H 95 09/26/19 09:27 09/26/19 09:27 09/26/19 09:27 09/26/19 09:27 09/26/19 09:27 Oxygen Delivery Method Room Air Weight: 210 lb 1.6 oz Body Mass Index (BMI) 31.9 Finger Stick Blood Glucose 190 Intake and Output for Last 24 Hours 09/24/19 09/25/19 09/26/19 23:59 23:59 23:59 Intake Total 1350 / 1350 2572.5 / 2572.5 462 / 462 Output Total 300 / 300 Balance 1350 / 1350 2272.5 / 2272.5 462 / 462 General: Alert, Oriented x3, Cooperative HEENT: Atraumatic, PERRLA, EOMI, Normocephalic Neck: Supple, No JVD, Negative Carotid Bruits Lungs: Clear to auscultation, Normal air movement Cardiovascular: Regular rate, No murmurs Abdomen: Bowel Sounds Present, Soft, Non Tender Extremities: No edema, Capillary Refill Less than 3 Seconds Skin: No rashes, No breakdown Musculoskeletal: No Tenderness to Palpation of Joints or Extremities Neurological: Cranial nerves II-XII grossly intact Psych/Mental Status: Normal Affect, Appropriate, Alert and oriented to time, place, person, mood and affect Microbiology Past 72 Hours 09/24/19 09:30 Urine, Clean Catch Urine Culture - Final Culture exhibits no growth. 09/24/19 09:22 Blood Culture (Wb) - Anticubital Right Bacteria Detection (PCR) - Final Staphylococcus epidermidis mecA Resistance Marker 09/24/19 09:22 Blood Culture (Wb) - Anticubital Right Blood Culture - Preliminary Staphylococcus epidermidis 09/24/19 09:45 Blood Culture (Wb) - Right Wrist Blood Culture - Preliminary No growth in 48 hours. Laboratory Results 09/25/19 04:30: WBC 11.1 H, RBC 4.01 L, Hgb 11.4 L, Hct 36.6 L, MCV 91.3, MCH 28.4, MCHC 31.1 L, RDW Std Deviation 47.9 H, RDW Coeff of Renu 14.3, Plt Count 246, MPV 10.8, Immature Gran % (Auto) 0.500, Neut % (Auto) 62.0, Lymph % (Auto) 24.3, Crosby % (Auto) 10.5 H, Eos % (Auto) 2.2, Baso % (Auto) 0.5, Absolute Neuts (auto) 6.9, Absolute Lymphs (auto) 2.70, Nucleated RBC % 0 09/25/19 04:30: Sodium 142, Potassium 4.4, Chloride 108 H, Carbon Dioxide 27.0, Anion Gap 7, BUN 23 H, Creatinine 1.32 H, Estim Creat Clear Calc 48.94, Est GFR (MDRD) Af Amer 69, Est GFR (MDRD) Non-Af 57 L, BUN/Creatinine Ratio 17.4, Glucose 117 H, Calcium 8.3 L, Total Bilirubin 0.40, AST 17, ALT 23, Alkaline Phosphatase 110, Total Protein 6.3 L, Albumin 3.0 L, Globulin 3.3, Albumin/Globulin Ratio 0.9 09/25/19 12:10: POC Glucose 181 H 09/25/19 16:55: POC Glucose 127 H 09/25/19 23:13: POC Glucose 109 09/26/19 05:54: WBC 9.5, RBC 4.06 L, Hgb 11.7 L, Hct 37.2 L, MCV 91.6, MCH 28.8, MCHC 31.5 L, RDW Std Deviation 48.4 H, RDW Coeff of Renu 14.5, Plt Count 247, MPV 10.8, Immature Gran % (Auto) 0.700, Neut % (Auto) 57.4, Lymph % (Auto) 25.9, Crosby % (Auto) 11.5 H, Eos % (Auto) 3.8, Baso % (Auto) 0.7, Absolute Neuts (auto) 5.5, Absolute Lymphs (auto) 2.46, Nucleated RBC % 0 09/26/19 05:54: Sodium 139, Potassium 4.0, Chloride 107, Carbon Dioxide 25.0, Anion Gap 7, BUN 21 H, Creatinine 1.09, Estim Creat Clear Calc 59.27, Est GFR (MDRD) Af Amer 85, Est GFR (MDRD) Non-Af 71, BUN/Creatinine Ratio 19.3, Glucose 126 H, Calcium 8.4 L 09/26/19 05:54: PT 20.2 H, INR 1.7 09/26/19 06:32: POC Glucose 130 H Current Medications Acetaminophen (Tylenol) 650 mg PO Q6H PRN PRN PRN Reason: Pain Score 1-10/Temp > 100.7 F Last Admin: 09/24/19 15:41 Dose: 650 mg Documented by: Albuterol Sulfate (Ventolin Aerosols) 2.5 mg INHALATION Q2H PRN PRN PRN Reason: Shortness of Breath/Wheezing Atorvastatin Calcium (Lipitor) 80 mg PO QHS [facility] Last Admin: 09/25/19 23:00 Dose: 80 mg Documented by: Carvedilol (Coreg) 12.5 mg PO BID [facility] Last Admin: 09/26/19 09:29 Dose: 12.5 mg Documented by: Dextrose (D50w Syringe) 0 gm IV X1 PRN; Protocol PRN Reason: Hypoglycemia Dicyclomine HCl (Bentyl) 10 mg PO TIDAC [facility] Last Admin: 09/26/19 06:31 Dose: 10 mg Documented by: Ferrous Sulfate (Ferrous Sulfate) 325 mg PO DAILY@1200 [facility] Last Admin: 09/25/19 12:13 Dose: Not Given Documented by: Finasteride (Proscar) 5 mg PO DAILY [facility] Last Admin: 09/26/19 09:31 Dose: 5 mg Documented by: Glucagon () 1 mg IM .X1 PRN PRN Reason: Hypoglycemia Vancomycin IV Pharmacy to Dose (1 ea/ Sodium Chloride) 500 mls @ 250 mls/hr IV X1 PRN; Protocol PRN Reason: Rx to Dose Sodium Chloride () 250 mls @ 15 mls/hr IV .[id number] PRN PRN Reason: Saline Flush Last Infusion: 09/26/19 01:19 Dose: 0 mls/hr Documented by: Sodium Chloride () 250 mls @ 15 mls/hr IV .[id number] PRN PRN Reason: Additional IVPB Infusion Vancomycin HCl (Vancomycin) 1,000 mg in 200 mls @ 200 mls/hr IV Q12H [facility] Last Infusion: 09/26/19 00:54 Dose: Infused Documented by: Nitroglycerin (Nitrostat) 0.4 mg SUBLINGUAL Q5M PRN PRN Reason: CARDIAC/CHEST PAIN Ondansetron HCl (Zofran) 4 mg IV Q8H PRN PRN PRN Reason: NAUSEA/VOMITING Last Admin: 09/25/19 17:00 Dose: 4 mg Documented by: Pantoprazole Sodium (Protonix) 20 mg PO DAILY [facility] Last Admin: 09/26/19 09:30 Dose: 20 mg Documented by: Psyllium Hydrophilic Mucilloid (Metamucil) 1 packet PO DAILY PRN PRN PRN Reason: Constipation Ranolazine (Ranexa) 1,000 mg PO BID [facility] Last Admin: 09/26/19 09:30 Dose: 1,000 mg Documented by: Sodium Chloride () 10 - 40 ml IV UD PRN PRN Reason: SALINE FLUSH Last Admin: 09/25/19 16:59 Dose: 10 ml Documented by: Sodium Chloride () 10 - 40 ml IV UD PRN PRN Reason: SALINE FLUSH Last Admin: 09/25/19 05:40 Dose: 10 ml Documented by: Tamsulosin HCl (Flomax) 0.4 mg PO BID [facility] Last Admin: 09/26/19 09:29 Dose: 0.4 mg Documented by: Tramadol HCl (Ultram) 50 mg PO BID PRN PRN PRN Reason: Pain Score 4-10/10 Last Admin: 09/25/19 23:30 Dose: 50 mg Documented by: Warfarin Sodium (Coumadin (Pbkc)) 5 mg PO DAILY@1700 [facility] Last Admin: 09/25/19 17:51 Dose: 5 mg Documented by: Discharge Diet: Low fat/ Low Cholesterol, 2000 mg Sodium Diet Discharge Activity: Return to Normal Activity Home Medications: Medications to take at Discharge Tamsulosin HCl [Flomax] 1 cap PO BID 01/15/17 Omeprazole 20 mg PO DAILY 03/13/18 atorvastatin 80 mg tablet 80 mg PO QHS 06/14/18 carvedilol 25 mg tablet 0.5 tab PO BID 06/14/18 ranolazine 1,000 mg tablet,extended release,12 hr 1,000 mg PO BID 06/14/18 Docusate Sodium [Colace] 100 mg PO DAILY #20 cap 06/09/19 Ferrous Sulfate 325 mg PO DAILY 06/09/19 Fexofenadine HCl 180 mg PO DAILY 06/09/19 Warfarin [Coumadin] 5 mg PO DAILY 09/24/19 Finasteride 5 mg PO DAILY 09/25/19 Ranitidine HCl 150 mg PO QHS 09/25/19 Tramadol HCl 50 mg PO BID 09/25/19 Dicyclomine HCl [Bentyl] 10 mg PO TIDAC #90 cap 09/26/19 Following Prescrptions Were Given to Patient: Dicyclomine HCl [Bentyl] 10 mg PO TIDAC #90 cap Transmission Status: Received by [facility] Primary Care Physician: [facility] [Primary [facility] Provider] - 1 Week Please follow up with your Primary Care Physician in: 1-2 weeks Disposition: Home Minutes spent on discharge:: 35 Patient Condition:: Stable Medical Necessity - Tobacco Use Smoking Status: Former smoker Tobacco Use: Non-smoker Meaningful Use Info Meaningful Use Diagnoses (Choose all that apply): None applicable <Alec Hunter - Last Filed: 09/26/19 13:15> Discharge Date and Diagnosis - Primary Discharge Diagnosis Active and Suspected Problems (Last Updated 06/14/18 @ 12:58 by Ebony Gomez) Weakness (Acute) Altered level of consciousness (Acute) - Secondary Discharge Diagnosis Chronic Problems (Last Updated 06/14/18 @ 12:58 by Ebony Gomez) Debility (Chronic) Essential (primary) hypertension (Chronic) Hyperlipidemia (Chronic) LV (left ventricular) mural thrombus (Chronic) History of anterior wall myocardial infarction (Chronic) Ischemic cardiomyopathy (Chronic) Atherosclerosis of coronary artery of [place] heart with angina pectoris (Chronic) Hospital Course and Treatment Imaging Results: 09/26/19 08:01 CT Abd [Abdomen/Pelvis WITH Contrast] [CT] Urgent Operations: None Procedures: None Summary of Care Provided: Patient seen and examined independently. Data reviewed. I agree with the above note by the physician manufacturing assistant. The patient is a 74 year old M presents with intense abdominal pain that just ma kes him generally weak. Happens intermittently but seems to be more frequent as of late. Is never been diagnosed with anything. Patient's had endoscopy with EGD and colonoscopy which been unremarkable. Patient had a CAT scan here that was done after his acute abdominal pain that showed no acute process. Is recommended that patient follow-up with general surgery to see if he may be candidate for exploratory laparotomy to find out what is causing this diffuse abdominal pain. Patient had a remote surgery about 30 years ago. Some clear patient does have a transient small bowel structures or not. Patient discharge was delayed as he had blood cultures were performed on admission and 1 came back showing gram-positive cocci. The culture showed staph epidermidis. It is only 1 of 2 sets and felt to be contaminant and no further work-up was necessary. The blood cultures were felt to be a contaminant and not directly related with his acute presentation. [] - Physical Exam Vitals/I&O's: Vital Signs Temp Pulse Resp BP Pulse Ox 36.9 C 64 18 154/73 H 95 09/26/19 09:27 09/26/19 09:27 09/26/19 09:27 09/26/19 09:27 09/26/19 09:27 Oxygen Delivery Method Room Air Weight: 95.3 kg Body Mass Index (BMI) 31.9 Finger Stick Blood Glucose 190 Intake and Output for Last 24 Hours 09/24/19 09/25/19 09/26/19 23:59 23:59 23:59 Intake Total 1350 / 1350 2572.5 / 2572.5 1062 / 1062 Output Total 300 / 300 1100 / 1100 Balance 1350 / 1350 2272.5 / 2272.5 -38 / -38 General: Alert, Cooperative HEENT: Atraumatic, Normocephalic Neck: No Nodes, Trachea Midline Lungs: Clear to auscultation, Normal air movement, No rhonchi, No wheeze Cardiovascular: Regular rate, Regular Rhythm, Normal S1 Abdomen: Bowel Sounds Present, Soft, - - Slight suprapubic tenderness Psych/Mental Status: Normal Affect, Appropriate Microbiology Past 72 Hours 09/24/19 09:30 Urine, Clean Catch Urine Culture - Final Culture exhibits no growth. 09/24/19 09:22 Blood Culture (Wb) - Anticubital Right Bacteria Detection (PCR) - Final Staphylococcus epidermidis mecA Resistance Marker 09/24/19 09:22 Blood Culture (Wb) - Anticubital Right Blood Culture - Preliminary Staphylococcus epidermidis 09/24/19 09:45 Blood Culture (Wb) - Right Wrist Blood Culture - Preliminary No growth in 48 hours. Laboratory Results 09/25/19 04:30: WBC 11.1 H, RBC 4.01 L, Hgb 11.4 L, Hct 36.6 L, MCV 91.3, MCH 28.4, MCHC 31.1 L, RDW Std Deviation 47.9 H, RDW Coeff of Renu 14.3, Plt Count 246, MPV 10.8, Immature Gran % (Auto) 0.500, Neut % (Auto) 62.0, Lymph % (Auto) 24.3, Crosby % (Auto) 10.5 H, Eos % (Auto) 2.2, Baso % (Auto) 0.5, Absolute Neuts (auto) 6.9, Absolute Lymphs (auto) 2.70, Nucleated RBC % 0 09/25/19 16:55: POC Glucose 127 H 09/25/19 23:13: POC Glucose 109 09/26/19 05:54: WBC 9.5, RBC 4.06 L, Hgb 11.7 L, Hct 37.2 L, MCV 91.6, MCH 28.8, MCHC 31.5 L, RDW Std Deviation 48.4 H, RDW Coeff of Renu 14.5, Plt Count 247, MPV 10.8, Immature Gran % (Auto) 0.700, Neut % (Auto) 57.4, Lymph % (Auto) 25.9, Crosby % (Auto) 11.5 H, Eos % (Auto) 3.8, Baso % (Auto) 0.7, Absolute Neuts (auto) 5.5, Absolute Lymphs (auto) 2.46, Nucleated RBC % 0 09/26/19 05:54: Sodium 139, Potassium 4.0, Chloride 107, Carbon Dioxide 25.0, Anion Gap 7, BUN 21 H, Creatinine 1.09, Estim Creat Clear Calc 59.27, Est GFR (MDRD) Af Amer 85, Est GFR (MDRD) Non-Af 71, BUN/Creatinine Ratio 19.3, Glucose 126 H, Calcium 8.4 L 09/26/19 05:54: PT 20.2 H, INR 1.7 09/26/19 06:32: POC Glucose 130 H Current Medications Acetaminophen (Tylenol) 650 mg PO Q6H PRN PRN PRN Reason: Pain Score 1-10/Temp > 100.7 F Last Admin: 09/24/19 15:41 Dose: 650 mg Documented by: Albuterol Sulfate (Ventolin Aerosols) 2.5 mg INHALATION Q2H PRN PRN PRN Reason: Shortness of Breath/Wheezing Atorvastatin Calcium (Lipitor) 80 mg PO QHS [facility] Last Admin: 09/25/19 23:00 Dose: 80 mg Documented by: Carvedilol (Coreg) 12.5 mg PO BID [facility] Last Admin: 09/26/19 09:29 Dose: 12.5 mg Documented by: Dextrose (D50w Syringe) 0 gm IV X1 PRN; Protocol PRN Reason: Hypoglycemia Dicyclomine HCl (Bentyl) 10 mg PO TIDAC [facility] Last Admin: 09/26/19 11:55 Dose: 10 mg Documented by: Ferrous Sulfate (Ferrous Sulfate) 325 mg PO DAILY@1200 [facility] Last Admin: 09/26/19 12:04 Dose: Not Given Documented by: Finasteride (Proscar) 5 mg PO DAILY [facility] Last Admin: 09/26/19 09:31 Dose: 5 mg Documented by: Glucagon () 1 mg IM .X1 PRN PRN Reason: Hypoglycemia Vancomycin IV Pharmacy to Dose (1 ea/ Sodium Chloride) 500 mls @ 250 mls/hr IV X1 PRN; Protocol PRN Reason: Rx to Dose Sodium Chloride () 250 mls @ 15 mls/hr IV .[id number] PRN PRN Reason: Saline Flush Last Infusion: 09/26/19 01:19 Dose: 0 mls/hr Documented by: Sodium Chloride () 250 mls @ 15 mls/hr IV .[id number] PRN PRN Reason: Additional IVPB Infusion Vancomycin HCl (Vancomycin) 1,000 mg in 200 mls @ 200 mls/hr IV Q12H [facility] Last Admin: 09/26/19 11:54 Dose: 200 mls/hr Documented by: Nitroglycerin (Nitrostat) 0.4 mg SUBLINGUAL Q5M PRN PRN Reason: CARDIAC/CHEST PAIN Ondansetron HCl (Zofran) 4 mg IV Q8H PRN PRN PRN Reason: NAUSEA/VOMITING Last Admin: 09/25/19 17:00 Dose: 4 mg Documented by: Pantoprazole Sodium (Protonix) 20 mg PO DAILY [facility] Last Admin: 09/26/19 09:30 Dose: 20 mg Documented by: Psyllium Hydrophilic Mucilloid (Metamucil) 1 packet PO DAILY PRN PRN PRN Reason: Constipation Ranolazine (Ranexa) 1,000 mg PO BID [facility] Last Admin: 09/26/19 09:30 Dose: 1,000 mg Documented by: Sodium Chloride () 10 - 40 ml IV UD PRN PRN Reason: SALINE FLUSH Last Admin: 09/26/19 11:54 Dose: 10 ml Documented by: Sodium Chloride () 10 - 40 ml IV UD PRN PRN Reason: SALINE FLUSH Last Admin: 09/25/19 05:40 Dose: 10 ml Documented by: Tamsulosin HCl (Flomax) 0.4 mg PO BID [facility] Last Admin: 09/26/19 09:29 Dose: 0.4 mg Documented by: Tramadol HCl (Ultram) 50 mg PO BID PRN PRN PRN Reason: Pain Score 4-10/10 Last Admin: 09/25/19 23:30 Dose: 50 mg Documented by: Warfarin Sodium (Coumadin (Pbkc)) 5 mg PO DAILY@1700 [facility] Last Admin: 09/25/19 17:51 Dose: 5 mg Documented by: Discharge Diet: Low fat/ Low Cholesterol, 2000 mg Sodium Diet Discharge Activity: Return to Normal Activity Disposition: Home Patient Condition:: Stable Medical Necessity - Tobacco Use Smoking Status: Former smoker Tobacco Use: Non-smoker Inpatient E&M: 59061 Disch Hosp
[2019-09-26] MEDS: Vancomycin IV 1,000 MG/200 ML BAG 200 MG IV (11:54)
[2019-09-26] MEDS: 0.9% Saline Lock 10 ML Syringe IV (11:54)
[2019-09-26 16:10] VITALS: BP 156/79; PULSE 72; RESP 18; TEMP 36.3; O2SAT 97
== END 2019-09-26 08:39 | disposition home or self-care (01) ==
LOC: ED 14:47 → PCU 15:02
PROVIDERS: Physician Assistant; Admitting Provider Internal Medicine; Emergency Provider Emergency Medicine
DX: R41.82 Altered mental status, unspecified (principal); R53.1 Weakness; R47.9 Unspecified speech disturbances; N39.0 Urinary tract infection, site not specified; E78.5 Hyperlipidemia, unspecified; I25.10 Atherosclerotic heart disease of native coronary artery without angina pectoris; I25.5 Ischemic cardiomyopathy; I12.9 Hypertensive chronic kidney disease with stage 1 through stage 4 chronic kidney disease, or unspecified chronic kidney disease; N18.3 Chronic kidney disease, stage 3 (moderate); I25.2 Old myocardial infarction; N40.0 Benign prostatic hyperplasia without lower urinary tract symptoms; E11.65 Type 2 diabetes mellitus with hyperglycemia; Z79.899 Other long term (current) drug therapy; Z79.01 Long term (current) use of anticoagulants; Z87.891 Personal history of nicotine dependence; Z95.1 Presence of aortocoronary bypass graft; Z86.718 Personal history of other venous thrombosis and embolism
CPT/HCPCS: 36415; 70450; 71045; 74177; 80048; 80053; 81001; 82962; 83036; 83605; 84484; 85025; 85610; 85730; 87040; 87086; 87149; 93005; 96361; 96365; 96366; 96375; 97161; 99218; 99251; 99285; J7030; J7040; J7050; P9612; Q9967; A4216; G0378; G0463; J2405

== ENCOUNTER 2020-10-25 22:11 | Observation (INO) | payer OTHER, MEDICARE, SELFPAY ==
[2019-09-24 15:14] VITALS: BMI 31.9
[2020-10-25 22:12] VITALS: BP 134/78; PULSE 69; RESP 18; TEMP 36.1; O2SAT 95; BMI 29.5
--- NOTE | 2020-10-25 22:17 | CT_ITS ---
STUDY: CT CERVICAL SPINE WITHOUT CONTRAST REASON FOR EXAM: Male, 75 years old. Trauma, head injury. RADIATION DOSAGE (If Supplied By Facility): CTDIvol = ( 26.94 ) mGy, DLP = ( 519.73 ) mGycm TECHNIQUE: High resolution transaxial imaging was performed without contrast material. Sagittal and coronal images were reconstructed. Individualized dose optimization techniques were used for this CT. COMPARISON: None FINDINGS: Normal craniovertebral junction. Normal anterior atlantoaxial articulation. Normal odontoid process. There is reversal of the normal cervical lordosis compatible with muscle spasm or patient positioning. Normal vertebral bodies and posterior osseous elements. C2-3: Normal endplates. Normal disc height and morphology. Normal central canal and intervertebral neuroforamina. C3-4: Normal endplates. Normal disc height and morphology. Normal central canal. Left neural foramina narrowing. C4-5: Normal endplates. Normal disc height and morphology. Right posterior osteophyte not producing significant spinal stenosis. Right neural foraminal narrowing. C5-6: Disc space narrowing and marginal osteophytes. Normal central canal. Bilateral neural foraminal narrowing right greater than left. C6-7: Disc space narrowing and marginal osteophytes. Normal central canal. Mild bilateral neural foramina narrowing. C7-T1: Normal endplates. Normal disc height and morphology. Normal central canal and intervertebral neuroforamina. Normal visualized soft tissue structures. CT/Spine Cervical without Contras IMPRESSION: Multilevel degenerative changes of the cervical spine. No fracture identified. Electronically Signed: Stu Gilbert MD at 23:26 EDT , Service support ,
--- NOTE | 2020-10-25 22:17 | EKG12_ITS ---
Test Reason : AMS Blood Pressure : / mmHG Vent. Rate : 064 BPM Atrial Rate : 064 BPM P-R Int : 184 ms QRS Dur : 094 ms QT Int : 416 ms P-R-T Axes : -04 -58 044 degrees QTc Int : 429 ms Normal sinus rhythm Left axis deviation Poor R wave progression Anteroseptal TN, age undetermined Nonspecific T wave abnormality Abnormal ECG Confirmed by JANNY IRELAND, ERIK ([id number]), business editor DENISE DALEY ([id number]) on 10/27/2020 9:01:41 AM Referred By: ED Confirmed By:ERIK SOLIMAN MD
[2020-10-25 22:28] LABS: Absolute Neutrophil Count 4.9 X10^3/uL (2.0-7.7); Basophil# 0.08 X10^3/uL; Basophil% 0.8 % (0-1); Eosinophil# 0.25 X10^3/uL; Eosinophils% 2.4 % (0-5); Hematocrit 43.6 % (40-54); Hemoglobin 13.6 g/dL (13.0-16.5); Lymphocyte % 38.4 % (19-41); Mean Corp Hgb Conc 31.2 g/dL (32-36); Mean Corpuscular Hgb 29.2 pg (27.0-32.0); Mean Corpuscular Volume 93.8 fL (80-94); Mean Platelet Vol. 10.7 fl (6.2-12.0); Monocyte# 1.06 X10^3/uL; Monocyte% 10.2 % (0-10); NRBC Flagged by Analyzer 0 % (0-5); Neutrophil # 4.85 X10^3/uL (2.7-7.7); Neutrophil % 46.6 % (47-70); Platelet Count 253 K/mm3 (150-450); RBC Distribution Width CV 14.3 % (11.6-14.6); RBC Distribution Width SD 48.8 fl (35.1-43.9); Red Blood Count 4.65 M/mm3 (4.6-6.2); White Blood Count 10.4 K/mm3 (4.4-11.0)
--- NOTE | 2020-10-25 22:45 | CT_ITS ---
STUDY: CT BRAIN WITHOUT CONTRAST REASON FOR EXAM: Male, 75 years old. head injury RADIATION DOSAGE (If Supplied By Facility): CTDIvol = ( 44.99 ) mGy, DLP = ( 829.85 ) mGycm TECHNIQUE: Transaxial CT imaging of the brain was performed without administration of intravenous contrast material. Individualized dose optimization techniques were used for this CT. COMPARISON: September 24, 2019. FINDINGS: Normal soft tissue structures. Normal calvarium. Mild deformity left nasal bones which is old. Normal size ventricles and extra-axial spaces for the patient''s age. Normal white matter tracts of the cerebral hemispheres. Normal basal ganglia and thalami. Normal brainstem. Normal cerebellum. There is no intracranial hemorrhage. There are no findings of an acute ischemic infarction. Normal visualized paranasal sinuses. CT/Brain/Head without Contrast IMPRESSION: Stable head CT, no acute intracranial abnormality. Electronically Signed: Stu Gilbert MD at 23:18 EDT , Service support ,
--- NOTE | 2020-10-25 22:45 | EDS_ITS ---
HPI History of Present Illness Chief Complaint: Alt LOC Informant: patient and EMS Onset/Context/Timing Onset: Today Current Severity: Mild Maximum Severity: Moderate Narrative Narrative: The patient is a 75-year-old male with medical history significant for coronary vascular disease, ischemic cardiomyopathy, hypertension, hyperlipidemia the presents to the emergency department after a fall. Patient was apparently at a local bar. He does admit that he had been drinking. He was found outside and was very confused. He had apparently fallen and struck his chin. He denies other injury. He does not think he lost consciousness. He has had some repetitive language since the fall. He denies any weakness. [facility] Medical History (Updated 10/26/20 @ 02:30 by Nelly Beverly) Atherosclerosis of coronary artery of [place] heart with angina pectoris BPH (benign prostatic hyperplasia) Chronic pain Congestive heart failure (CHF) Coronary artery disease Deep vein thrombosis Dyspnea Essential (primary) hypertension Former smoker GERD (gastroesophageal reflux disease) Hearing loss, left Hearing loss, right High cholesterol History of anterior wall myocardial infarction History of stress test Hyperlipidemia Hypertension Ischemic cardiomyopathy LV (left ventricular) mural thrombus Myocardial infarct On home oxygen therapy Sleep apnea Home Medications omeprazole 20 mg PO DAILY 03/13/18 [History Last Taken 10/25/20 09:00] atorvastatin 80 mg tablet 80 mg PO QHS 06/14/18 [History Last Taken 10/25/20 21:00] carvedilol 25 mg tablet 1 tab PO BID 06/14/18 [History Last Taken 10/25/20 21:00] ranolazine 1,000 mg tablet,extended release,12 hr 1,000 mg PO BID 06/14/18 [History Last Taken 10/25/20 09:00] ferrous sulfate 325 mg PO DAILY 06/09/19 [History Last Taken 10/25/20 09:00] fexofenadine 180 mg PO DAILY 06/09/19 [History Last Taken 10/25/20 09:00] warfarin 5 mg PO DAILY 09/24/19 [History Last Taken 10/24/20 21:00] Finasteride 5 mg PO DAILY 09/25/19 [History Last Taken 10/25/20 09:00] Allergy/AdvReac Type Severity Reaction Status Date / Time No Known Allergies Allergy Verified 10/25/20 22:17 Family History Mother COPD (chronic obstructive pulmonary disease) Surgical History (Updated 10/26/20 @ 02:30 by Nelly Beverly) H/O coronary artery bypass surgery (06/09/15) History of appendectomy History of coronary artery stent placement History of left heart catheterization (03/14/18) Status post cardiac surgery Social History (Updated 10/26/20 @ 02:33 by Nelly Beverly) adopted: No household members: none housing: condominium number of children: 4 financial difficulty paying for basics: not very hard service: Yes current occupational status: retired current occupational exposures/hazards: No pets and animals: No leisure activities: clubs and other Smoking Status: Former smoker ROS ROS ED Constitutional Constitutional ED: Denies chills or fever(s) Eyes Eyes: Denies blurry vision or change in vision ENT ENT ED: Denies ear pain or sore throat Cardiovascular Cardiovascular: Denies chest pain or palpitations Respiratory/Chest Respiratory/Chest: Denies cough, dyspnea or dyspnea on exertion Gastrointestinal Gastrointestinal: Denies abdominal pain, nausea or vomiting Genitourinary Genitourinary ED: Denies dysuria or urinary frequency Musculoskeletal Musculoskeletal: Denies arthralgias or myalgias Integumentary Denies rash Neurologic Neurologic: Denies headache(s) or paresthesias Psychiatric Psychiatric: Denies anxiety or depression Endocrine Endocrinology: Denies polydipsia or polyuria Allergic/Immunologic Allergic/Immunologic ED: Denies urticaria EXAM Physical Exam Const Vital Signs: 10/25/20 22:12 10/25/20 22:18 10/25/20 23:24 Temperature 97 F L Temperature Source Temporal Pulse Rate 69 70 Respiratory Rate 18 18 Respiratory Pattern Normal Blood Pressure 134/78 H 139/86 H Blood Pressure Mean 96 103 Pulse Ox 95 96 Oxygen Delivery Method Room Air Room Air Oxygen Flow Rate (L/min) 10/25/20 23:33 10/26/20 00:00 10/26/20 00:55 Temperature Temperature Source Pulse Rate 61 64 Respiratory Rate 13 Respiratory Pattern Blood Pressure 138/72 H 138/72 H Blood Pressure Mean 94 Pulse Ox 92 98 Oxygen Delivery Method Nasal Cannula Nasal Cannula Oxygen Flow Rate (L/min) 3 2 10/26/20 00:58 Temperature 98.4 F Temperature Source Temporal Pulse Rate 64 Respiratory Rate 12 Respiratory Pattern Blood Pressure 138/72 H Blood Pressure Mean 94 Pulse Ox 97 Oxygen Delivery Method Nasal Cannula Oxygen Flow Rate (L/min) 2 Positive well nourished and well developed General Appearance ED: well developed HEENT Reports normocephalic, head/scalp atraumatic and moist mucous membranes HEENT Narrative: Abrasion to chin. No malocclusion. trauma Eyes PERRL and EOMs intact bilaterally Neck no lymphadenopathy and supple General: Negative for tenderness Chest Wall inspection of chest normal Resp normal respiratory effort and clear to auscultation bilaterally Cardio regular rate, regular rhythm and no murmurs GI normal to inspection, nondistended, normoactive bowel sounds Palpation: Negative for tender, guarding or rebound tenderness present Back/Spine no CVA tenderness Cervical Spine: Negative for cervical spine tenderness Thoracic Spine / Upper Back: Negative for thoracic spinal tenderness Extremity normal to inspection General Extremety ED: Negative for tenderness Neuro oriented x3 and CN's II-XII intact bilaterally Neuro Narrative: No focal deficits appreciated. Sensorium / Orientation: alert Psych mental status grossly normal Skin no rashes or lesions noted, no wounds and skin turgor normal MDM MDM MDM Narrative Medical decision making narrative: The patient presents after a fall. He was complaining of some intermittent chest pain since the fall. EKG was done which shows no evidence of acute ischemia. I also reviewed his prehospital EKG which was similar. Patient does admit to drinking. He has some superficial abrasions on the chin but no malocclusion. Patient underwent CT brain and CT C-spine. These are both unremarkable for acute process. The patient is intoxicated. His alcohol level is 200. However, cardiac enzymes are unremarkable. He continued to complain of intermittent chest pain that would wax and wane. He was given morphine and nitro. Given his advanced age, history of coronary vascular disease, and waxing and waning pain, I do feel that he would benefit from admission. Patient was discussed with the hospitalist. Impression 1. Chest pain 2. Alcohol tox [place] 3. Mechanical fall Lab Data Attestation: I reviewed the patient's lab results. Labs: Laboratory Results - last 24 hr 10/25/20 10/25/20 10/25/20 22:16 22:16 22:16 WBC 10.4 RBC 4.65 Hgb 13.6 Hct 43.6 MCV 93.8 MCH 29.2 MCHC 31.2 L RDW Std Deviation 48.8 H RDW Coeff of Renu 14.3 Plt Count 253 MPV 10.7 Immature Gran % (Auto) 1.600 H Neut % (Auto) 46.6 L Lymph % (Auto) 38.4 [place] % (Auto) 10.2 H Eos % (Auto) 2.4 Baso % (Auto) 0.8 Absolute Neuts (auto) 4.9 Absolute Lymphs (auto) 4.00 Nucleated RBC % 0 Sodium 140 Potassium 3.8 Chloride 104 Carbon Dioxide 28.0 Anion Gap 8 BUN 24 H Creatinine 1.31 H Estim Creat Clear Calc 50.22 Est GFR (MDRD) Af Amer 69 Est GFR (MDRD) Non-Af 57 L BUN/Creatinine Ratio 18.3 Glucose 151 H Calcium 8.7 Total Bilirubin 0.40 AST 19 ALT 28 Alkaline Phosphatase 133 H Troponin I Total Protein 7.2 Albumin 3.5 Globulin 3.7 Albumin/Globulin Ratio 0.9 Lipase Ethyl Alcohol 207.0 10/25/20 22:16 WBC RBC Hgb Hct MCV MCH MCHC RDW Std Deviation RDW Coeff of Renu Plt Count MPV Immature Gran % (Auto) Neut % (Auto) Lymph % (Auto) [place] % (Auto) Eos % (Auto) Baso % (Auto) Absolute Neuts (auto) Absolute Lymphs (auto) Nucleated RBC % Sodium Potassium Chloride Carbon Dioxide Anion Gap BUN Creatinine Estim Creat Clear Calc Est GFR (MDRD) Af Amer Est GFR (MDRD) Non-Af BUN/Creatinine Ratio Glucose Calcium Total Bilirubin AST ALT Alkaline Phosphatase Troponin I < 0.015 Total Protein Albumin Globulin Albumin/Globulin Ratio Lipase 116 Ethyl Alcohol Radiography Diagnostic Testing: Radiology Impression Cervical Spine CT 10/25/20 22:17 IMPRESSION: Multilevel degenerative changes of the cervical spine. No fracture identified. Electronically Signed: Stu Gilbert MD at 23:26 EDT , Service support , Brain CT 10/25/20 22:45 IMPRESSION: Stable head CT, no acute intracranial abnormality. Electronically Signed: Stu Gilbert MD at 23:18 EDT , Service support , Chest X-Ray 10/25/20 23:30 IMPRESSION: No acute cardiopulmonary disease. Electronically Signed: Stu Gilbert MD at 0:57 EDT , Service support , Discharge Plan Disposition Disposition: Acute Care Hospital [facility] Discharge Date/Time: 10/26/20 01:54
[2020-10-25 22:46] LABS: ALB/GLOB Ratio 0.9 RATIO (0.9-2.4); AST(SGOT) 19 U/L (15-37); Alanine Aminotransfer ALT/SGPT 28 U/L (16-61); Albumin, Serum 3.5 g/dL (3.2-5.0); Alkaline Phosphatase 133 U/L (45-117); Anion Gap 8 (5-15); BUN 24 mg/dL (7-18); BUN/Creat Ratio 18.3 RATIO (10-20); Calcium,Total 8.7 mg/dL (8.5-10.1); Chloride 104 mmol/L (98-107); Creatinine, Serum 1.31 mg/dL (0.70-1.30); EST Glomerular Filtration Rate 57 mL/min (>60); Est Glom Filt Rate - Afr Amer 69 mL/min (>60); Estimated Creatinine Clearance 50.22 ml/min; Globulin 3.7 g/dL (2.2-4.2); Glucose 151 mg/dL (74-106); Potassium 3.8 mmol/L (3.5-5.1); Protein, Total 7.2 g/dL (6.4-8.2); Sodium Level 140 mmol/L (136-145)
[2020-10-25] MEDS: Morphine 4 MG/ML Syringe IV (23:18)
[2020-10-25 23:24] VITALS: BP 139/86; PULSE 70; RESP 18; O2SAT 96
--- NOTE | 2020-10-25 23:30 | RAD_ITS ---
STUDY: X-RAY CHEST REASON FOR EXAM: Male, 75 years old. chest pain TECHNIQUE: AP portable chest. COMPARISON: September 24, 2019. FINDINGS: No focal infiltrates or effusions. No pneumothorax. There is borderline cardiomegaly. Sternal wires are present. Normal mediastinum and ian. Normal visualized pulmonary arteries. Normal visualized aortic arch and descending thoracic aorta. Normal visualized thoracic spine. Normal visualized ribs, clavicles, and shoulders. There is no demonstrated abnormality of the visualized soft tissue structures of the upper abdomen. RAD/Chest 1 View (Portable) IMPRESSION: No acute cardiopulmonary disease. Electronically Signed: Stu Gilbert MD at 0:57 EDT , Service support ,
[2020-10-25 23:31] LABS: Lipase 116 U/L (73-393)
[2020-10-25 23:33] VITALS: O2SAT 92
[2020-10-26] VITALS (10 sets, daily range): BP systolic 120–160; BP diastolic 61–94; PULSE 61–81; RESP 12–20; TEMP 36.1–36.9; O2SAT 91–98; BMI 32.7
--- NOTE | 2020-10-26 00:19 | EKG12_ITS ---
Test Reason : AMS Blood Pressure : / mmHG Vent. Rate : 061 BPM Atrial Rate : 061 BPM P-R Int : 166 ms QRS Dur : 094 ms QT Int : 442 ms P-R-T Axes : 026 -66 133 degrees QTc Int : 444 ms Normal sinus rhythm Left anterior fascicular block Poor R wave progression Anteroseptal TX, age undetermined, cannot be excluded Abnormal ECG Confirmed by JANNY IRELAND, ERIK ([id number]), art editor DENISE DALEY ([id number]) on 10/27/2020 9:02:17 AM Referred By: LYN IRELAND Confirmed By:ERIK SOLIMAN MD
[2020-10-26] MEDS: Nitroglycerin Oint 1 INCH PACKET TD (00:55)
--- NOTE | 2020-10-26 01:01 | PCM.HP.STD ---
HPI - General HPI Narrative NATHAN AN, is a 75 M who presents to the ER after suffering a fall at a local bar. The patient's blood alcohol content is greater than 200, however, the patient denies routine drinking. He does have an abrasion to his chin and complains of chest pain. He does have a history of CABG in 2008 with history of ischemic cardiomyopathy with a negative catheterization done in 2018. He is followed by the [place] for his routine medical care and the last known visit with the fusing line inspector was Dr. Mcmullen in 2018. Since he is complaining of chest pain the patient will be observed overnight and cardiac enzymes cycled. It is more likely than not that he fell and suffered soft tissue injury to the chest wall upon falling. The patient continues to have repetitive speech most likely as result of his excessive alcohol consumption. [facility] Medical History Atherosclerosis of coronary artery of [place] heart with angina pectoris BPH (benign prostatic hyperplasia) Deep vein thrombosis Essential (primary) hypertension History of anterior wall myocardial infarction Hyperlipidemia Ischemic cardiomyopathy LV (left ventricular) mural thrombus Home Medications tamsulosin 1 cap PO BID 01/15/17 [History Last Taken 03/12/18] omeprazole 20 mg PO DAILY 03/13/18 [History Last Taken 03/12/18] atorvastatin 80 mg tablet 80 mg PO QHS 06/14/18 [History Last Taken Unknown] carvedilol 25 mg tablet 0.5 tab PO BID 06/14/18 [History Last Taken Unknown] ranolazine 1,000 mg tablet,extended release,12 hr 1,000 mg PO BID 06/14/18 [History Last Taken Unknown] docusate sodium 100 mg PO DAILY #20 cap 06/09/19 [Rx Last Taken Unknown] ferrous sulfate 325 mg PO DAILY 06/09/19 [History Last Taken Unknown] fexofenadine 180 mg PO DAILY 06/09/19 [History Last Taken Unknown] warfarin 5 mg PO DAILY 09/24/19 [History Last Taken 09/23/19 22:00] Finasteride 5 mg PO DAILY 09/25/19 [History Last Taken Unknown] Ranitidine Hcl 150 mg PO QHS 09/25/19 [History Last Taken Unknown] Tramadol Hcl 50 mg PO BID 09/25/19 [History Last Taken Unknown] dicyclomine 10 mg PO TIDAC #90 cap 09/26/19 [Rx Last Taken Unknown] Allergy/AdvReac Type Severity Reaction Status Date / Time No Known Allergies Allergy Verified 10/25/20 22:17 Family History Mother COPD (chronic obstructive pulmonary disease) Surgical History H/O coronary artery bypass surgery (06/09/15) History of coronary artery stent placement History of left heart catheterization (03/14/18) Social History Smoking Status: Former smoker ROS Constitutional Constitutional: Reports as per HPI Eyes Eyes: Reports systems reviewed and no addt'l complaints, except as documented Cardiovascular Cardiovascular: Reports chest pain at rest Respiratory/Chest Respiratory/Chest: Reports systems reviewed and no addt'l complaints, except as documented; Denies cough Gastrointestinal Gastrointestinal: Denies abdominal pain Musculoskeletal Musculoskeletal: Reports systems reviewed and no addt'l complaints, except as documented Neurologic Neurologic: Reports lack of coordination Psychiatric Psychiatric: Reports anxiety Endocrine Endocrinology: Reports systems reviewed and no addt'l complaints, except as documented Hematologic/Lymphatic Hematologic/Lymphatic: Denies easy bruising Vital Signs Vital Signs Vital Signs: 10/25/20 22:12 10/25/20 22:18 10/25/20 23:24 Temperature 97 F L Temperature Source Temporal Pulse Rate 69 70 Respiratory Rate 18 18 Respiratory Pattern Normal Blood Pressure 134/78 H 139/86 H Blood Pressure Mean 96 103 Pulse Ox 95 96 Oxygen Delivery Method Room Air Room Air Oxygen Flow Rate (L/min) 10/25/20 23:33 10/26/20 00:00 10/26/20 00:55 Temperature Temperature Source Pulse Rate 61 64 Respiratory Rate 13 Respiratory Pattern Blood Pressure 138/72 H 138/72 H Blood Pressure Mean 94 Pulse Ox 92 98 Oxygen Delivery Method Nasal Cannula Nasal Cannula Oxygen Flow Rate (L/min) 3 2 Physical Exam Const alert Constitutional Narrative: abrasion to chin General Appearance: cooperative Orientation / Consciousness: awake and confused HEENT normocephalic Eyes PERRL and EOMs intact bilaterally Neck supple Lymph Lymphatic: no lymphadenopathy noted Chest Chest: symmetrical chest wall rise and tenderness sternum Resp normal respiratory effort and normal air movement Effort and Inspection: able to speak in complete sentences Auscultation: clear to auscultation bilaterally Cardio regular rhythm, S1 normal heart sound and S2 normal heart sound GI normal to inspection, nondistended, normoactive bowel sounds Extremity normal to inspection Neuro moves all extremities and no sensory deficits noted Gait (Neuro): unable to assess gait Psych Thought Process: confused Attention / Concentration: attention grossly intact Memory / Cognition: other does not remember falling Lab / Micro Data Result Diagrams: 10/25/20 22:16 10/25/20 22:16 Labs: Laboratory Results - last 24 hr 10/25/20 10/25/20 10/25/20 22:16 22:16 22:16 WBC 10.4 RBC 4.65 Hgb 13.6 Hct 43.6 MCV 93.8 MCH 29.2 MCHC 31.2 L RDW Std Deviation 48.8 H RDW Coeff of Renu 14.3 Plt Count 253 MPV 10.7 Immature Gran % (Auto) 1.600 H Neut % (Auto) 46.6 L Lymph % (Auto) 38.4 [place] % (Auto) 10.2 H Eos % (Auto) 2.4 Baso % (Auto) 0.8 Absolute Neuts (auto) 4.9 Absolute Lymphs (auto) 4.00 Nucleated RBC % 0 Sodium 140 Potassium 3.8 Chloride 104 Carbon Dioxide 28.0 Anion Gap 8 BUN 24 H Creatinine 1.31 H Estim Creat Clear Calc 50.22 Est GFR (MDRD) Af Amer 69 Est GFR (MDRD) Non-Af 57 L BUN/Creatinine Ratio 18.3 Glucose 151 H Calcium 8.7 Total Bilirubin 0.40 AST 19 ALT 28 Alkaline Phosphatase 133 H Troponin I Total Protein 7.2 Albumin 3.5 Globulin 3.7 Albumin/Globulin Ratio 0.9 Lipase Ethyl Alcohol 207.0 10/25/20 22:16 WBC RBC Hgb Hct MCV MCH MCHC RDW Std Deviation RDW Coeff of Renu Plt Count MPV Immature Gran % (Auto) Neut % (Auto) Lymph % (Auto) [place] % (Auto) Eos % (Auto) Baso % (Auto) Absolute Neuts (auto) Absolute Lymphs (auto) Nucleated RBC % Sodium Potassium Chloride Carbon Dioxide Anion Gap BUN Creatinine Estim Creat Clear Calc Est GFR (MDRD) Af Amer Est GFR (MDRD) Non-Af BUN/Creatinine Ratio Glucose Calcium Total Bilirubin AST ALT Alkaline Phosphatase Troponin I < 0.015 Total Protein Albumin Globulin Albumin/Globulin Ratio Lipase 116 Ethyl Alcohol Radiology Impression Cervical Spine CT 10/25/20 22:17 IMPRESSION: Multilevel degenerative changes of the cervical spine. No fracture identified. Electronically Signed: Stu Gilbert MD at 23:26 EDT , Service support , Brain CT 10/25/20 22:45 IMPRESSION: Stable head CT, no acute intracranial abnormality. Electronically Signed: Stu Gilbert MD at 23:18 EDT , Service support , Chest X-Ray 10/25/20 23:30 IMPRESSION: No acute cardiopulmonary disease. Electronically Signed: Stu Gilbert MD at 0:57 EDT , Service support , Assessment & Plan Assessment/Plan (1) History of coronary artery stent placement: Status: Resolved Code(s): Z95.5 - Presence of coronary angioplasty implant and graft (2) H/O coronary artery bypass surgery: Status: Resolved Code(s): Z95.1 - Presence of aortocoronary bypass graft (3) Ischemic cardiomyopathy: Status: Chronic Code(s): I25.5 - Ischemic cardiomyopathy (4) Atherosclerosis of coronary artery of [place] heart with angina pectoris: Status: Chronic Code(s): I25.119 - Atherosclerotic heart disease of [place] coronary artery with unspecified angina pectoris (5) Hyperlipidemia: Status: Chronic Code(s): E78.5 - Hyperlipidemia, unspecified Qualifiers: Hyperlipidemia type: unspecified Qualified Code(s): E78.5 - Hyperlipidemia, unspecified (6) Essential (primary) hypertension: Status: Chronic Code(s): I10 - Essential (primary) hypertension (7) Debility: Status: Chronic Code(s): R53.81 - Other malaise (8) Weakness: Status: Acute Code(s): R53.1 - Weakness (9) Alcohol abuse: Status: Acute Code(s): F10.10 - Alcohol abuse, uncomplicated (10) Chest pain: Status: Acute Code(s): R07.9 - Chest pain, unspecified (11) History of anterior wall myocardial infarction: Status: Chronic Code(s): I25.2 - Old myocardial infarction Plan: Plan admit patient to progressive care unit, cycle cardiac enzymes and reassess in the morning when patient is more alert after his alcohol has left his system. DVT prophylaxis?low molecular weight heparin Visit Charges OBSV E&M: 52302 Initial observation care L2
--- NOTE | 2020-10-26 02:15 | EKG12_ITS ---
Test Reason : CP ADMISSION Blood Pressure : / mmHG Vent. Rate : 070 BPM Atrial Rate : 070 BPM P-R Int : 176 ms QRS Dur : 090 ms QT Int : 424 ms P-R-T Axes : 049 -60 082 degrees QTc Int : 457 ms Normal sinus rhythm Left axis deviation Anterior CO, age undetermined Nonspecific T wave abnormality Abnormal ECG Confirmed by JANNY IRELAND, ERIK ([id number]), editor farm journal DENISE DALEY ([id number]) on 10/27/2020 9:16:48 AM Referred By: REE Confirmed By:ERIK SOLIMAN MD
[2020-10-26] MEDS: Acetaminophen 325 MG Tablet 650 MG PO ×2 (03:36→11:04)
[2020-10-26] MEDS: Morphine 2 MG/ML Syringe IV (03:36)
[2020-10-26 04:51] LABS: Absolute Lymphocyte Count 2.44 X10^3/uL (0.83-4.51); Absolute Neutrophil Count 7.1 X10^3/uL (2.0-7.7); Basophil# 0.04 X10^3/uL; Basophil% 0.4 % (0-1); Eosinophil# 0.11 X10^3/uL; Hematocrit 38.2 % (40-54); Hemoglobin 12.1 g/dL (13.0-16.5); Lymphocyte # 2.44 X10^3/ul (0.83-4.51); Lymphocyte % 22.8 % (19-41); Mean Corp Hgb Conc 31.7 g/dL (32-36); Mean Corpuscular Hgb 29.2 pg (27.0-32.0); Mean Corpuscular Volume 92.3 fL (80-94); Mean Platelet Vol. 10.6 fl (6.2-12.0); Monocyte# 0.98 X10^3/uL; Monocyte% 9.2 % (0-10); NRBC Flagged by Analyzer 0 % (0-5); Neutrophil # 7.06 X10^3/uL (2.7-7.7); Neutrophil % 65.9 % (47-70); Platelet Count 224 K/mm3 (150-450); RBC Distribution Width CV 14.3 % (11.6-14.6); RBC Distribution Width SD 48.8 fl (35.1-43.9); Red Blood Count 4.14 M/mm3 (4.6-6.2); White Blood Count 10.7 K/mm3 (4.4-11.0)
[2020-10-26 05:17] LABS: Anion Gap 8 (5-15); BUN 23 mg/dL (7-18); BUN/Creat Ratio 24.9 RATIO (10-20); Calcium,Total 8.1 mg/dL (8.5-10.1); Chloride 107 mmol/L (98-107); Creatinine, Serum 0.92 mg/dL (0.70-1.30); EST Glomerular Filtration Rate 85 mL/min (>60); Est Glom Filt Rate - Afr Amer 103 mL/min (>60); Estimated Creatinine Clearance 69.18 ml/min; Glucose 121 mg/dL (74-106); International Normalized Ratio 2.1; Prothrombin Time (Protime)PT. 22.9 SECONDS (11.7-14.9); Sodium Level 140 mmol/L (136-145)
--- NOTE | 2020-10-26 12:15 | DCINST_ITS ---
Discharge Instructions Outpatient Procedure Reason For Visit: CHEST PAIN Follow Up Care Test Results: Test results from this visit will be discussed in further detail at your follow-up appointment, if applicable. Discharge Plan Admission Admit Date/Time: 10/26/20 01:23 Attending Provider: Teena Bolivar Primary Care Provider: [facility],[place] Instructions Patient Instructions: Alcoholism: Getting Help, ED Chest Pain, Noncardiac, ED Alcohol Abuse Discharge Orders/Prescriptions Prescriptions: Continued atorvastatin 80 mg tablet 80 mg PO QHS RF: 0 carvedilol 25 mg tablet 1 tab PO BID RF: 0 Ranexa 1,000 mg tablet extended release 12 hr 1,000 mg PO BID RF: 0 omeprazole 20 MG tablet,disintegrat, delay rel 20 mg PO DAILY RF: 0 fexofenadine 180 MG tablet 180 mg PO DAILY RF: 0 ferrous sulfate 325 MG tablet 325 mg PO DAILY RF: 0 warfarin 5 MG tablet 5 mg PO DAILY RF: 0 Finasteride 5 MG tablet 5 mg PO DAILY RF: 0 Referrals: [facility] [Primary Care Provider] - Within 1 Week Disposition Disposition (needs filled in before D/C Order can be placed): Home, self care
--- NOTE | 2020-10-26 12:16 | PCM.DC.SUM ---
Providers Date of Admission: 10/26/20 Primary Care Physician: [facility] Reason For Visit: CHEST PAIN Diagnosis Discharge Diagnosis (1) History of coronary artery stent placement: Status: Resolved Code(s): Z95.5 - Presence of coronary angioplasty implant and graft (2) H/O coronary artery bypass surgery: Status: Resolved Code(s): Z95.1 - Presence of aortocoronary bypass graft (3) Ischemic cardiomyopathy: Status: Chronic Code(s): I25.5 - Ischemic cardiomyopathy (4) Atherosclerosis of coronary artery of [place] heart with angina pectoris: Status: Chronic Code(s): I25.119 - Atherosclerotic heart disease of [place] coronary artery with unspecified angina pectoris (5) Hyperlipidemia: Status: Chronic Code(s): E78.5 - Hyperlipidemia, unspecified Qualifiers: Hyperlipidemia type: unspecified Qualified Code(s): E78.5 - Hyperlipidemia, unspecified (6) Essential (primary) hypertension: Status: Chronic Code(s): I10 - Essential (primary) hypertension (7) Debility: Status: Chronic Code(s): R53.81 - Other malaise (8) Weakness: Status: Acute Code(s): R53.1 - Weakness (9) Alcohol abuse: Status: Acute Code(s): F10.10 - Alcohol abuse, uncomplicated (10) Chest pain: Status: Acute Code(s): R07.9 - Chest pain, unspecified (11) History of anterior wall myocardial infarction: Status: Chronic Code(s): I25.2 - Old myocardial infarction (12) Accident due to mechanical fall without injury: Status: Acute Code(s): W19.XXXA - Unspecified fall, initial encounter Medications at Discharge Home Medications omeprazole 20 mg PO DAILY 03/13/18 atorvastatin 80 mg tablet 80 mg PO QHS 06/14/18 carvedilol 25 mg tablet 1 tab PO BID 06/14/18 ranolazine 1,000 mg tablet,extended release,12 hr 1,000 mg PO BID 06/14/18 ferrous sulfate 325 mg PO DAILY 06/09/19 fexofenadine 180 mg PO DAILY 06/09/19 warfarin 5 mg PO DAILY 09/24/19 Finasteride 5 mg PO DAILY 09/25/19 Hospital Course Operations None Procedures None Summary of Care Provided Minutes Spent on Discharge: 35 Hospital Course: Patient is 75-year-old male with an extensive past medical history as outlined was admitted through the ED immediately hours of 10/26/2020 after he had a mechanical fall. Patient was at a local bar drinking and states he drank more than he usually does. He said he left the bar to walk home and subsequently fell down.. On admission, his blood alcohol level was greater than 200. He states that he thinks his left knee just gave out that he denies having any left knee pain. Subsequently complained of chest pain which he said he could feel when he pressed his chest and he thought it was because he fell and landed on his chest. Review of symptoms otherwise negative. He was admitted to be managed for mechanical fall and debility due to alcohol abuse as well as chest pain which is likely musculoskeletal. Troponins x3 were negative. Patient remained stable and said he had had several heart attacks in the past and did not think that this chest pain was like heart attack and felt that it was mainly because he fell. Chest pain was markedly reproducible with palpation. Patient did not want to have any stress test or any further work-up. He remained stable and stable to ambulate in the hospital. He was discharged home on 10/26/2020 and was counseled to abstain from alcohol. He is to follow-up with his primary care doctor within 1 to 2 weeks. Patient was seen and examined prior to discharge. He had no complaints and review of systems otherwise negative. Labs and vitals reviewed. Medication reviewed and reconciled. Physical Exam Const alert, oriented x3 and no apparent distress General Appearance: cooperative and comfortable Orientation / Consciousness: awake, oriented to person, oriented to place and oriented to time Exam Limitations: no limitations HEENT normocephalic and head/scalp atraumatic Eyes PERRL and EOMs intact bilaterally Neck no lymphadenopathy Resp normal respiratory effort and clear to auscultation bilaterally Cardio regular rate, regular rhythm, S1 normal heart sound, S2 normal heart sound and no murmurs Cardio Narrative: Has chest pain that is reproducible with palpation. GI normal to inspection, nondistended, normoactive bowel sounds, soft to palpation, non-tender and non-distended Extremity normal to inspection and full ROM Skin skin turgor normal Neuro oriented x3, moves all extremities and no focal motor deficits Sensorium / Orientation: awake and alert Psych affect normal ABG / Lab / Microbiology Data Result Diagrams: 10/26/20 04:44 10/26/20 04:44 Laboratory: Laboratory Results - last 24 hr 10/25/20 10/25/20 10/25/20 22:16 22:16 22:16 WBC 10.4 RBC 4.65 Hgb 13.6 Hct 43.6 MCV 93.8 MCH 29.2 MCHC 31.2 L RDW Std Deviation 48.8 H RDW Coeff of Renu 14.3 Plt Count 253 MPV 10.7 Immature Gran % (Auto) 1.600 H Neut % (Auto) 46.6 L Lymph % (Auto) 38.4 [place] % (Auto) 10.2 H Eos % (Auto) 2.4 Baso % (Auto) 0.8 Absolute Neuts (auto) 4.9 Absolute Lymphs (auto) 4.00 Nucleated RBC % 0 PT INR Sodium 140 Potassium 3.8 Chloride 104 Carbon Dioxide 28.0 Anion Gap 8 BUN 24 H Creatinine 1.31 H Estim Creat Clear Calc 50.22 Est GFR (MDRD) Af Amer 69 Est GFR (MDRD) Non-Af 57 L BUN/Creatinine Ratio 18.3 Glucose 151 H Calcium 8.7 Total Bilirubin 0.40 AST 19 ALT 28 Alkaline Phosphatase 133 H Troponin I Total Protein 7.2 Albumin 3.5 Globulin 3.7 Albumin/Globulin Ratio 0.9 Lipase Ethyl Alcohol 207.0 10/25/20 10/26/20 10/26/20 22:16 01:47 04:44 WBC RBC Hgb Hct MCV MCH MCHC RDW Std Deviation RDW Coeff of Renu Plt Count MPV Immature Gran % (Auto) Neut % (Auto) Lymph % (Auto) [place] % (Auto) Eos % (Auto) Baso % (Auto) Absolute Neuts (auto) Absolute Lymphs (auto) Nucleated RBC % PT INR Sodium 140 Potassium 4.0 Chloride 107 Carbon Dioxide 25.0 Anion Gap 8 BUN 23 H Creatinine 0.92 Estim Creat Clear Calc 69.18 Est GFR (MDRD) Af Amer 103 Est GFR (MDRD) Non-Af 85 BUN/Creatinine Ratio 24.9 H Glucose 121 H Calcium 8.1 L Total Bilirubin AST ALT Alkaline Phosphatase Troponin I < 0.015 < 0.015 < 0.015 Total Protein Albumin Globulin Albumin/Globulin Ratio Lipase 116 Ethyl Alcohol 10/26/20 10/26/20 10/26/20 04:44 04:44 07:40 WBC 10.7 RBC 4.14 L Hgb 12.1 L Hct 38.2 L MCV 92.3 MCH 29.2 MCHC 31.7 L RDW Std Deviation 48.8 H RDW Coeff of Renu 14.3 Plt Count 224 MPV 10.6 Immature Gran % (Auto) 0.700 Neut % (Auto) 65.9 Lymph % (Auto) 22.8 [place] % (Auto) 9.2 Eos % (Auto) 1.0 Baso % (Auto) 0.4 Absolute Neuts (auto) 7.1 Absolute Lymphs (auto) 2.44 Nucleated RBC % 0 PT 22.9 H INR 2.1 Sodium Potassium Chloride Carbon Dioxide Anion Gap BUN Creatinine Estim Creat Clear Calc Est GFR (MDRD) Af Amer Est GFR (MDRD) Non-Af BUN/Creatinine Ratio Glucose Calcium Total Bilirubin AST ALT Alkaline Phosphatase Troponin I < 0.015 Total Protein Albumin Globulin Albumin/Globulin Ratio Lipase Ethyl Alcohol Radiography Diagnostic Testing: Radiology Impression Cervical Spine CT 10/25/20 22:17 IMPRESSION: Multilevel degenerative changes of the cervical spine. No fracture identified. Electronically Signed: Stu Gilbert MD at 23:26 EDT , Service support , Brain CT 10/25/20 22:45 IMPRESSION: Stable head CT, no acute intracranial abnormality. Electronically Signed: Stu Gilbert MD at 23:18 EDT , Service support , Chest X-Ray 10/25/20 23:30 IMPRESSION: No acute cardiopulmonary disease. Electronically Signed: Stu Gilbert MD at 0:57 EDT , Service support , D/C Instructions Discharge Diet: Low fat / Low cholesterol Discharge Activity: Return to Normal Activity Weight Bearing Status: Weight bearing as tolerated Call your doctor if you observe: Shortness of breath, Dizziness and Chest pain Please follow up with your Primary Care Physician in: 1-2 weeks Meaningful Use Info Meaningful Use Diagnoses (Choose all that apply): None applicable Discharge Plan Admission Admit Date/Time: 10/26/20 01:23 Attending Provider: Teena Bolivar [facility] Instructions Patient Instructions: Alcoholism: Getting Help, ED Chest Pain, Noncardiac, ED Alcohol Abuse Discharge Orders/Prescriptions Prescriptions: Continued atorvastatin 80 mg tablet 80 mg PO QHS RF: 0 carvedilol 25 mg tablet 1 tab PO BID RF: 0 Ranexa 1,000 mg tablet extended release 12 hr 1,000 mg PO BID RF: 0 omeprazole 20 MG tablet,disintegrat, delay rel 20 mg PO DAILY RF: 0 fexofenadine 180 MG tablet 180 mg PO DAILY RF: 0 ferrous sulfate 325 MG tablet 325 mg PO DAILY RF: 0 warfarin 5 MG tablet 5 mg PO DAILY RF: 0 Finasteride 5 MG tablet 5 mg PO DAILY RF: 0 [facility] Provider[facility] - Within 1 Week Disposition Disposition (needs filled in before D/C Order can be placed): Home, self care Visit Charges OBSV E&M: 02541 Observ/hosp same date L2
--- NOTE | 2020-10-26 12:22 | PHA.DC.MR ---
Pharmacy Service has performed discharge medication reconciliation for this patient. The patient's discharge medication list was reviewed for discrepancies and discrepancies were resolved. Home Medications omeprazole 20 mg PO DAILY 03/13/18 atorvastatin 80 mg tablet 80 mg PO QHS 06/14/18 carvedilol 25 mg tablet 1 tab PO BID 06/14/18 ranolazine 1,000 mg tablet,extended release,12 hr 1,000 mg PO BID 06/14/18 ferrous sulfate 325 mg PO DAILY 06/09/19 fexofenadine 180 mg PO DAILY 06/09/19 warfarin 5 mg PO DAILY 09/24/19 Finasteride 5 mg PO DAILY 09/25/19
== END 2020-10-26 12:15 | disposition home or self-care (01) ==
LOC: ED 10-26 00:52 → PCU 10-26 01:24
PROVIDERS: Admitting Provider Family Medicine; Emergency Provider Emergency Medicine; Visit Provider Student in an Organized Health Care Education/Training Program
DX: R07.89 Other chest pain (principal); F10.10 Alcohol abuse, uncomplicated; Y90.7 Blood alcohol level of 200-239 mg/100 ml; I25.10 Atherosclerotic heart disease of native coronary artery without angina pectoris; E78.5 Hyperlipidemia, unspecified; S00.81XA Abrasion of other part of head, initial encounter; W19.XXXA Unspecified fall, initial encounter; Y93.01 Activity, walking, marching and hiking; Y92.9 Unspecified place or not applicable; I25.5 Ischemic cardiomyopathy; I11.0 Hypertensive heart disease with heart failure; I50.9 Heart failure, unspecified; N40.0 Benign prostatic hyperplasia without lower urinary tract symptoms; K21.9 Gastro-esophageal reflux disease without esophagitis; G47.30 Sleep apnea, unspecified; I25.2 Old myocardial infarction; Z87.891 Personal history of nicotine dependence; Z79.899 Other long term (current) drug therapy; Z79.01 Long term (current) use of anticoagulants; Z99.81 Dependence on supplemental oxygen; Z86.718 Personal history of other venous thrombosis and embolism; Z95.1 Presence of aortocoronary bypass graft
CPT/HCPCS: 36415; 70450; 71045; 72125; 80048; 80053; 82077; 83690; 84484; 85025; 85610; 93005; 96361; 96374; 96376; 99218; 99285; J7030; A4216; G0378

== ENCOUNTER 2020-11-12 16:58 | Emergency (ER) | payer OTHER, SELFPAY ==
[2020-10-26 02:10] VITALS: BMI 32.7
[2020-11-12 16:59] VITALS: BP 149/82; PULSE 76; RESP 14; TEMP 36.4; O2SAT 95; BMI 31.0
--- NOTE | 2020-11-12 17:16 | EDS_ITS ---
HPI History of Present Illness HPI Narrative: 75-year-old male presenting with right rib pain. He states its right anterior and posterior. This is been hurting him for about 4 weeks since he had a mechanical fall while intoxicated. At that point he had a cardiac work-up which was negative. He was discharged home and has been stable. Patient is on Coumadin but maintains compliance and he states his INR is always therapeutic. [facility] who did a chest x- ray which was normal but sent him to the ER anyway out of concern for the possibility of internal bleeding. Patient has no other symptoms. He is not lightheaded, short of breath. He denied fever or chills. Chief Complaint: Upper Extremity Injury [facility] Medical History Atherosclerosis of coronary artery of [place] heart with angina pectoris BPH (benign prostatic hyperplasia) Chronic pain Congestive heart failure (CHF) Coronary artery disease Deep vein thrombosis Dyspnea Essential (primary) hypertension Former smoker GERD (gastroesophageal reflux disease) Hearing loss, left Hearing loss, right High cholesterol History of anterior wall myocardial infarction History of stress test Hyperlipidemia Hypertension Ischemic cardiomyopathy LV (left ventricular) mural thrombus Myocardial infarct On home oxygen therapy Sleep apnea Home Medications omeprazole 20 mg PO DAILY 03/13/18 [History Last Taken 10/25/20 09:00] atorvastatin 80 mg tablet 80 mg PO QHS 06/14/18 [History Last Taken 10/25/20 21:00] carvedilol 25 mg tablet 1 tab PO BID 06/14/18 [History Last Taken 10/25/20 21:00] ranolazine 1,000 mg tablet,extended release,12 hr 1,000 mg PO BID 06/14/18 [History Last Taken 10/25/20 09:00] ferrous sulfate 325 mg PO DAILY 06/09/19 [History Last Taken 10/25/20 09:00] fexofenadine 180 mg PO DAILY 06/09/19 [History Last Taken 10/25/20 09:00] warfarin 5 mg PO DAILY 09/24/19 [History Last Taken 10/24/20 21:00] Finasteride 5 mg PO DAILY 09/25/19 [History Last Taken 10/25/20 09:00] Allergy/AdvReac Type Severity Reaction Status Date / Time No Known Allergies Allergy Verified 11/12/20 17:01 Family History Mother COPD (chronic obstructive pulmonary disease) Surgical History H/O coronary artery bypass surgery (06/09/15) History of appendectomy History of coronary artery stent placement History of left heart catheterization (03/14/18) Status post cardiac surgery Social History adopted: No household members: none housing: [facility] number of children: 4 current occupational status: retired current occupational exposures/hazards: No pets and animals: No leisure activities: clubs and other Smoking Status: Former smoker ROS ROS ED Constitutional Constitutional ED: Denies chills, fever(s) or sweats Eyes Eyes: Denies blurry vision or change in vision ENT ENT ED: Denies ear pain, rhinorrhea or sore throat Cardiovascular Cardiovascular: Reports chest pain; Denies palpitations or racing heartbeat Respiratory/Chest Respiratory/Chest: Denies cough, dyspnea or sputum Gastrointestinal Gastrointestinal: Denies abdominal pain, constipation, diarrhea or vomiting Genitourinary Genitourinary ED: Denies dysuria, hematuria or urinary frequency Musculoskeletal Musculoskeletal: Denies arthralgias, myalgias or neck pain Integumentary Denies abscess, Abrasions or rash Neurologic Neurologic: Denies headache(s), paresthesias or weakness Psychiatric Psychiatric: Denies anxiety, depression, suicidal ideation or suicidal thoughts Endocrine Endocrinology: Denies polydipsia or polyuria EXAM Physical Exam Const Vital Signs: 11/12/20 16:59 Temperature 97.6 F L Temperature Source Temporal Pulse Rate 76 Respiratory Rate 14 Blood Pressure 149/82 H Blood Pressure Mean 104 Pulse Ox 95 Oxygen Delivery Method Room Air General Appearance ED: Negative for pallor HEENT Reports normocephalic, head/scalp atraumatic and moist mucous membranes Eyes PERRL and EOMs intact bilaterally Neck no lymphadenopathy and supple Chest Wall inspection of chest normal Chest Narrative: Mild tenderness to palpation of the right anterior chest laterally and superiorly. There is no crepitance, deformity. Resp normal respiratory effort and clear to auscultation bilaterally Resp Narrative: Equal symmetric breath sounds and chest wall rise. Auscultation: Negative for rales, rhonchi or wheezes Cardio regular rate and regular rhythm GI normal to inspection, nondistended, normoactive bowel sounds and non-distended Auscultation: normoactive bowel sounds Palpation: soft Narrative: Deferred Back/Spine no CVA tenderness General Back: Negative for CVA tenderness Cervical Spine: Negative for cervical spine tenderness Extremity normal to inspection General Extremety ED: Yes edema and tenderness General Extremity: edema Neuro oriented x3 and CN's II-XII intact bilaterally Sensorium / Orientation: alert Motor Exam: strength 5/5 throughout Psych mental status grossly normal Attitude: No agitated Skin no rashes or lesions noted and no wounds General Skin Exam: Negative for jaundice or pallor MDM MDM MDM Narrative Medical decision making narrative: Patient presents for evaluation after his [facility] provider sent him to the emergency room out of concern for internal bleeding for the last 4 weeks. Patient states the pain has actually improved. His bruising has disappeared. He continues to have pain. He had an x-ray done outpatient which was normal. Given that the patient has had this for 4 weeks I have a low suspicion for internal bleeding. He has no other symptoms. I do not believe he needs repeat imaging and lab work given he had a cardiac work-up last time he was in the emergency room while intoxicated. Patient counseled that his primary care physician should probably send him to physical therapy to ensure res olution. Patient amenable to this plan. Patient will be discharged home in stable condition. Impression: 1. Right anterior rib pain Discharge Plan Triage Chief Complaint: Upper Extremity Injury ED Provider: Rashid Handley Dx/Rx/DC Orders Instructions: ED Chest Pain Wall [facility] Prescriptions: No Action atorvastatin 80 mg tablet 80 mg PO QHS RF: 0 carvedilol 25 mg tablet 1 tab PO BID RF: 0 Ranexa 1,000 mg tablet extended release 12 hr 1,000 mg PO BID RF: 0 omeprazole 20 MG tablet,disintegrat, delay rel 20 mg PO DAILY RF: 0 fexofenadine 180 MG tablet 180 mg PO DAILY RF: 0 ferrous sulfate 325 MG tablet 325 mg PO DAILY RF: 0 warfarin 5 MG tablet 5 mg PO DAILY RF: 0 Finasteride 5 MG tablet 5 mg PO DAILY RF: 0 [facility] [place] [facility]errals[place] [facility] [Primary Care Provider] -
[2020-11-12 17:23] VITALS: RESP 18
== END 2020-11-12 17:29 | disposition home or self-care (01) ==
PROVIDERS: Emergency Provider Student in an Organized Health Care Education/Training Program
DX: R07.81 Pleurodynia (principal); G89.29 Other chronic pain; I25.5 Ischemic cardiomyopathy; I25.119 Atherosclerotic heart disease of native coronary artery with unspecified angina pectoris; I11.0 Hypertensive heart disease with heart failure; I50.9 Heart failure, unspecified; E78.5 Hyperlipidemia, unspecified; N40.0 Benign prostatic hyperplasia without lower urinary tract symptoms; H91.93 Unspecified hearing loss, bilateral; G47.30 Sleep apnea, unspecified; K21.9 Gastro-esophageal reflux disease without esophagitis; Z99.81 Dependence on supplemental oxygen; Z79.01 Long term (current) use of anticoagulants; Z79.899 Other long term (current) drug therapy; I25.2 Old myocardial infarction; Z86.718 Personal history of other venous thrombosis and embolism; Z87.891 Personal history of nicotine dependence; Z95.1 Presence of aortocoronary bypass graft; Z95.5 Presence of coronary angioplasty implant and graft
CPT/HCPCS: 99282